=== PATIENT | male | born 1970 | race African-American/Black ===

== ENCOUNTER 2018-10-15 19:00 | Inpatient (IN) ==
[2018-10-15] MEDS ORDERED: Dextrose 50% in Water 50 ML Vial IV.PUSH PRN (22:07)
[2018-10-15] MEDS ORDERED: Acetaminophen 325 MG Tablet PO PRN (22:08)
[2018-10-15] MEDS ORDERED: Zolpidem Tartrate 5 MG Tablet PO PRN (22:08)
[2018-10-15] MEDS ORDERED: Bisacodyl 10 MG Supp RECTAL PRN (22:08)
--- NOTE | 2018-10-15 23:37 | P.HPIM ---
History of Present Illness [facility] Primary Care Physician: Rohini Tenorio Chief Complaint: Nausea and vomiting History of Present Illness: Mr. Dubon is a very pleasant 48 year-old male with a history of Type 1 Diabetes Mellitus and hypertension who presented to the emergency room in [place] complaining of less than 24 hours of nausea with vomiting. He was found to have a BUN of 80, Creatinine of 11.5, and eGFR of 6 with a potassium only mildly elevated at 5.2. The ER physician discussed the case with on-call oncology and the patient was transferred to the [facility] under the hospitalist service for further evaluation and management. The patient is seen shortly after arrival in his room. He reports that nausea and vomiting started at about 1:30 p.m. and caused him to leave work today. He denies associated diarrhea or abdominal pain. He did experience stuttering speech about 4 p.m. today and has continued through to the time of my visit. He denies ever having this symptom before. He denies headache, unilateral weakness, or paresthesias. He denies any recent fevers, chills, chest pain, or shortness of breath. He does report severe fatigue and muscle aches over the past few days. He denies any history of kidney disease. He has received several doses of anti-emetics, but none have worked. He has not taken any Pepto Bismol for GI symptoms but reports black emesis earlier today. Emesis is noted to be brown at the time of my visit. Other than stuttering speech, his neurological exam is completely normal. Family history unknown due to adoption. Inpatient Certification: I certify that the inpatient services were ordered in accordance with Medicare regulations governing the order. This includes certification that hospital inpatient services are reasonable and necessary and in the case of services not specified as inpatient-only under 42 CFR 419.22(n), that they are appropriately provided as inpatient services in accordance to with the 2-midnight benchmark under 43 CFR 412.3(e) Estimated Total Length of Stay (Days): 4 Plans for Post Hospital Care: Home Review of Systems All other systems reviewed negative except as stated in [facility] - History History Provided By: Patient - Medical History Medical History: Medical History (Last Updated 10/16/18 @ 00:20 by VALERIO Archer) History of MRSA infection Hypertension Type 1 diabetes mellitus Onset Date: ~1991 - Surgical History Surgical History: Surgical History (Last Updated 10/16/18 @ 00:19 by VALERIO Archer) History of arthroplasty of left ankle Onset Date: ~1987 Hx of tonsillectomy Onset Date: ~1976 - Family History Family History: Family History (Last Updated 10/16/18 @ 00:19 by VALERIO Archer) Other Family history not known due to adoption - Social History I have reviewed the patient's Social History: Yes - Tobacco History Second Hand Smoke Exposure: No Smoking Status: Never smoker - Alcohol History How Often Do You Have a Drink Containing Alcohol: Never - Substance Use History Substance History: No History of Abuse Medications and Allergies Active Medications: Active Medications Acetaminophen (Tylenol) 650 mg PO Q4H PRN PRN Reason: Temp > 100.4 Bisacodyl (Dulcolax Supp) 10 mg RECTAL DAILY PRN PRN Reason: SEVERE CONSITIPATION Dextrose (D50w Vial) 50 ml IV.PUSH UNSCH PRN PRN Reason: PER HYPOGLYCEMIA PROTOCOL Glucagon (Glucagon Inj) 1 mg OTHER PRN PRN PRN Reason: for Hypoglycemia Protocol Sodium Chloride (Ns Inj) 1,000 mls @ 60 mls/hr IV.CONT .[id number] GIUSEPPE Insulin Aspart (Novolog Insulin Correctional Sugar Inj) 0 unit SQ ACHS AND 3AM GIUSEPPE; Protocol Ondansetron HCl (Zofran Inj) 4 mg IV.PUSH Q6H PRN PRN Reason: NAUSEA OR VOMITING Sennosides (Senokot) 17.2 mg PO Q12H PRN PRN Reason: Moderate Constipation Sodium Chloride (Ns Flush) 2 ml IV.FLUSH BID GIUSEPPE Sodium Chloride (Ns Flush) 2 ml IV.FLUSH PRN PRN PRN Reason: FLUSH AFTER USING IV ACCESS Zolpidem Tartrate (Ambien) 5 mg PO HS PRN PRN Reason: INSOMNIA Allergies Allergy/AdvReac Type Severity Reaction Status Date / Time No Known Allergies Allergy Verified 10/15/18 19:04 Home Medications Medication Instructions Recorded Confirmed Type insulin aspart U-100 [Novolog 1 sliding scale dose SUBCUT UD 10/15/18 10/15/18 History U-100 Insulin aspart] insulin glargine [Lantus Solostar 25 unit SUBCUT DAILY 10/15/18 10/15/18 History U-100 Insulin] Exam Narrative: GENERAL: This is a pleasant well-nourished, well-developed patient, in no apparent distress. SKIN: No rashes, ecchymoses or lesions. Cool and dry. HEAD: Atraumatic. Normocephalic. EYES: No scleral icterus. No injection or drainage. ENT: Nose without bleeding, purulent drainage. NECK: Trachea midline. No JVD or lymphadenopathy. CARDIOVASCULAR: Regular rate and rhythm without murmurs, gallops, or rubs. RESPIRATORY: Clear to auscultation. Breath sounds equal bilaterally. No wheezes , rales, or rhonchi. GASTROINTESTINAL: Abdomen soft, non-tender, nondistended. No guarding. MUSCULOSKELETAL: Extremities without clubbing, cyanosis, or edema. No calf tenderness. NEUROLOGICAL: Awake and alert. Motor and sensory grossly within normal limits. Stuttering speech. CN II-XII grossly intact. No pronator drift noted. . Results - Labs CBC & Chem 7: 10/16/18 00:59 Caprini VTE Risk Assessment Caprini VTE Risk Assessment: No/Low Risk (score <= 1) Caprini Risk Assessment Model: Point Value = 1 Point Value = 2 Point Value = 3 Point Value = 5 Age 41-60 Minor surgery BMI > 25 kg/m2 Swollen legs Varicose veins or History of unexplained or recurrent spontaneous Oral contraceptives or hormone replacement Sepsis (< 1 month) Serious lung disease, including pneumonia (< 1 month) Abnormal pulmonary function Acute myocardial infarction Congestive heart failure (< 1 month) History of inflammatory bowel disease Medical patient at bed rest Age 61-74 Arthroscopic surgery Major open surgery (> 45 min) Laparoscopic surgery (> 45 min) Malignancy Confined to bed (> 72 hours) Immobilizing plaster cast Central venous access Age >= 75 History of VTE Family history of VTE Factor V Leiden Prothrombin [id number] Lupus anticoagulant Anticardiolipin antibodies Elevated serum homocysteine Heparin-induced thrombocytopenia Other congenital or acquired thrombophilia Stroke (< 1 month) Elective arthroplasty Hip, pelvis, or leg fracture Acute spinal cord injury (< 1 month) Prophylaxis Regimen: Total Risk Factor Score Risk Level Prophylaxis Regimen 0-1 Low Early ambulation 2 Moderate Order ONE of the following: *Sequential Compression Device (SCD) *Heparin 5000 units SQ BID 3-4 Higher Order ONE of the following medications: *Heparin 5000 units SQ TID *Enoxaparin/Lovenox 40 mg SQ daily (WT < 150 kg, CrCl > 30 mL/min) *Enoxaparin/Lovenox 30 mg SQ daily (WT < 150 kg, CrCl > 10-29 mL/min) *Enoxaparin/Lovenox 30 mg SQ BID (WT < 150 kg, CrCl > 30 mL/min) AND/OR *Sequential Compression Device (SCD) 5 or more Highest Order ONE of the following medications: *Heparin 5000 units SQ TID (Preferred with Epidurals) *Enoxaparin/Lovenox 40 mg SQ daily (WT < 150 kg, CrCl > 30 mL/min) *Enoxaparin/Lovenox 30 mg SQ daily (WT < 150 kg, CrCl > 10-29 mL/min) *Enoxaparin/Lovenox 30 mg SQ BID (WT < 150 kg, CrCl > 30 mL/min) AND *Sequential Compression Device (SCD) Assessment and Plan - Plan Mr. Dubon is a very pleasant 48 year-old male with a history of Type 1 Diabetes Mellitus and hypertension who presented to the emergency room in [place] complaining of less than 24 hours of nausea with vomiting. He was found to have a BUN of 80, Creatinine of 11.5, and eGFR of 6 with a potassium only mildly elevated at 5.2. The ER physician discussed the case with on-call oncology and the patient was transferred to the main hospital under the hospitalist service for further evaluation and management. Acute Renal Failure - patient denies history of kidney disease -BUN 80, Creatinine of 11.5, and eGFR of 6 with a potassium 5.2 -consult to nephrology - appreciate assistance -NPO -IVF hydration with NS at 60 cc/hr -obtain renal u/s to evaluate the structure and look for possible obstruction or other abnormality of bladder/ureters/kidneys -avoid nephrotoxins -repeat labs in a.m. and follow results Stuttering speech - suspect secondary to ARF- acutely started at 4 p.m. -check ct head without contrast to r/o intracranial bleeding - if normal check brain MRI -consider neurology consultation Nausea/Vomiting -abdomen/pelvis CT in [place] negative -Zofran 4 mg IV q6h and Prochlorperazine 5 mg IV q6h -concern for GI bleed with "black" discolored emesis earlier today - check emesis for occult blood, if +, consult GI -Protonix 40 mg IV x 1 dose, if emesis occult blood +, start Protonix drip Anemia - concern for possible gi bleed vs underlying chronic kidney disease -Hgb 10.6/HCT 32.3 -repeat labs and follow trends Hypertension -Takes clonidine at home -Clonidine 0.1 mg q6h PRN SBP > 180, DBP > 100 if HR > 60 - monitor bp and adjust tx as indicated Type 1 DM -accuchecks ACHS and 03 with low dose sliding scale coverage -holding home basal insulin for now while NPO - reconciliation also needs to be completed -PRN hypoglycemia protocol -monitor trends in blood sugar readings and adjust treatment as indicated -restart basal insulin when diet restarted DVT prophylaxis -early ambulation Discussed Condition With: Dr. Morse, patient, and RN
[2018-10-16] MEDS: Sod Chloride 0.9% Inj 1,000 ML IV.CONT SCH (00:03)
[2018-10-16] MEDS ORDERED: Pantoprazole Inj 40 MG Vial IV.PUSH ONE (00:44)
--- NOTE | 2018-10-16 01:47 | CT ---
EXAM DATE: 10/16/2018 1:39 AM EST AGE/SEX: 48 years / Male INDICATIONS: Altered mental status. Stuttered speech. CLINICAL DATA: This is the patient's initial encounter. Patient reports that signs and symptoms have been present for 1 day and indicates a pain score of 0/10. MEDICAL/SURGICAL HISTORY: Hypertension. Diabetes mellitus type I. Tonsillectomy. RADIATION DOSE: 56.35 CTDI (mGy) COMPARISON: No prior exams available for comparison. TECHNIQUE: CT of the head without contrast. Using automated exposure control and adjustment of the mA and/or kV according to patient size, radiation dose was kept as low as reasonably achievable to ob tain optimal diagnostic quality images. DICOM format image data is available electronically for revi ew and comparison. FINDINGS: Cerebrum: There is generalized cerebral atrophy. Ventricles are normal given the degree of atrophy. There is moderate periventricular white matter low attenuation. Low-attenuation in the right fronta l high convexity is characteristic of encephalomalacia. There is cavum septum lucidum. No midline sh ift, mass lesion, hemorrhage or acute infarction. No extraaxial fluid collections are seen. Posterior Fossa: The cerebellum and brainstem demonstrate no acute abnormality. The 4th ventricle is midline. The cerebellopontine angle is within normal limits. Extracranial: The visualized sinuses are clear. Skull: The calvaria is intact. No skull fracture. CONCLUSION: 1. No acute intracranial abnormality is identified. 2. There is generalized cerebral atrophy and moderate to severe periventricular white matter low-att enuation likely representing chronic small vessel ischemic change. There additionally is encephalomal acia in the right frontal high convexity. These findings are much more severe than typically seen in a patient of this age. . Electronically signed by: Ric Watkins MD 10/16/2018 1:46 AM EST
[2018-10-16 01:56] LABS: Calcium 7.7 mg/dL (8.5-10.1); Carbon Dioxide 20.3 meq/L (21.0-32.0); Potassium 4.7 meq/L (3.5-5.1)
[2018-10-16 02:05] LABS: Thyroid Stimulating Hormone 1.18 uIU/mL (0.358-3.740)
[2018-10-16] MEDS ORDERED: Dextrose 50% in Water 50 ML Vial IV.PUSH PRN (02:15)
[2018-10-16 02:18] LABS: CKMB Percent 1.3 % (0.0-4.0); Creatine Kinase MB 6.4 ng/mL (0.5-3.6)
[2018-10-16] MEDS: Insulin NovoLOG Aspart Correctional Sugar Inj SQ SCH ×4 (03:42→21:02)
[2018-10-16 07:25] LABS: Hematocrit 27.1 % (39.0-51.0); Hemoglobin 9.2 gm/dL (13.0-17.0); Lymph # (Auto) 0.6 th/mm3 (1.0-4.8); Lymph % (Auto) 5.3 % (9.0-44.0); Mean Corpuscular HGB Conc 33.8 % (32.0-36.0); Mean Corpuscular Hemoglobin 27.1 pg (27.0-34.0); Mean Corpuscular Volume 80.2 fL (80.0-100.0); Mean Platelet Volume 7.6 fL (7.0-11.0); Mono # (Auto) 0.4 th/mm3 (0.0-0.9); Mono % (Auto) 3.9 % (0.0-8.0); Neut # (Auto) 9.9 th/mm3 (1.8-7.7); Neut % (Auto) 90.8 % (16.0-70.0); Platelet Count 325 th/mm3 (150-450); Red Blood Count 3.38 mil/mm3 (4.50-5.90); White Blood Count 10.8 th/mm3 (4.0-11.0)
[2018-10-16] MEDS ORDERED: Sod Chloride 0.9% Inj 1,000 ML OTHER PRN ×2 (09:14)
[2018-10-16] MEDS ORDERED: Acetaminophen 325 MG Tablet PO PRN (09:14)
[2018-10-16] MEDS ORDERED: Albumin Human 25% Inj 100 ML IV.SIG PRN (09:14)
[2018-10-16] MEDS ORDERED: Gelatin 12 MM/7 MM Topical Foam TOPICAL PRN (09:14)
[2018-10-16] MEDS ORDERED: Sod Chloride 0.9% Inj 1,000 ML IV.CONT PRN (09:14)
[2018-10-16] MEDS ORDERED: Heparin 10,000 UNITS/10 ML Vial (for IV use) OTHER PRN (09:14)
--- NOTE | 2018-10-16 09:48 | P.CONNP ---
<Ricky Esteves - Last Filed: 10/16/18 11:52> History of Present Illness Reason for Consult: Acute Renal Failure Primary Care Provider: Rohini Tenorio Chief Complaint: Nausea and vomiting History of Present Illness: Patient is a 48 year old male who is a transfer from [place]. He came to the hospital with complaints of nausea and vomiting for one day. Patient has prior medical history of Hypertension and Type I Diabetes. Patient has no history of kidney disease and family history is unknown due to adoption. Patient denies tobacco, alcohol, and illicit drug use. Patient's renal function has not improved since being transferred from [place]. Creatinine is 11.27, BUN 85. Potassium is 4.7. Patient's baseline renal function is not known. JACQUELINE could be due to dehydration from vomiting. Patient could have underlying CKD due to diabetic nephropathy, patient has had diabetes since 1991. Patient denied any use of nephrotoxic agents. Renal ultrasound is pending. UA is pending. Consult to IR was placed for PermCath and dialysis orders were put in. Patient to be dialyzed today. Patient denied chest pain, SOB, diarrhea. Patient has been NPO due to nausea and vomiting. Per the nurse, patient on contact precautions due to history of MRSA. Review of Systems All other systems reviewed negative except as stated in HPI PMFSH - History History Provided By: Patient - Medical History Medical History: Medical History (Last Reviewed 10/16/18 @ 09:39 by Geneva Short) History of MRSA infection Hypertension Type 1 diabetes mellitus Onset Date: ~1991 - Surgical History Surgical History: Surgical History (Last Reviewed 10/16/18 @ 09:39 by Geneva Short) History of arthroplasty of left ankle Onset Date: ~1987 Hx of tonsillectomy Onset Date: ~1976 - Family History Family History: Family History (Last Updated 10/16/18 @ 00:19 by VALERIO Archer) Other Family history not known due to adoption - Tobacco History Second Hand Smoke Exposure: No Tobacco Use In Past 30 Days: No Smoking Status: Never smoker Tobacco Type: Cigarettes - Alcohol History How Often Do You Have a Drink Containing Alcohol: Never - Substance Use History Substance History: No History of Abuse - Immunization History Tetanus Immunization: <5 Years Hx Influenza Vaccine This Season: No Medications and Allergies Allergies Allergy/AdvReac Type Severity Reaction Status Date / Time No Known Allergies Allergy Verified 10/15/18 19:04 Home Medications Medication Instructions Recorded Confirmed Type insulin aspart U-100 [Novolog 1 sliding scale dose SUBCUT UD 10/15/18 10/15/18 History U-100 Insulin aspart] insulin glargine [Lantus Solostar 25 unit SUBCUT DAILY 10/15/18 10/15/18 History U-100 Insulin] Active Medications: Active Medications Acetaminophen (Tylenol) 650 mg PO Q4H PRN PRN Reason: Temp > 100.4/headache Acetaminophen (Tylenol) 650 mg PO UNSCH PRN PRN Reason: SEE LABEL COMMENTS Bisacodyl (Dulcolax Supp) 10 mg RECTAL DAILY PRN PRN Reason: SEVERE CONSITIPATION Clonidine HCl (Catapres) 0.1 mg PO Q6H PRN PRN Reason: sbp>180 or dbp>100 if HR > 60 Last Admin: 10/16/18 00:39 Dose: 0.1 mg Clonidine HCl (Catapres) 0.1 mg PO UNSCH PRN PRN Reason: SEE LABEL COMMENTS Dextrose (D50w Vial) 50 ml IV.PUSH UNSCH PRN PRN Reason: per Hypoglycemic Protocol Diphenhydramine HCl (Benadryl) 25 mg PO UNSCH PRN PRN Reason: SEE LABEL COMMENTS Epoetin Hector (Epogen Inj) 10,000 unit IV.PUSH UNSCH PRN PRN Reason: SEE LABEL COMMENTS Gelatin (Gelfoam 12 Mm/7 Mm Topical) 1 foam TOPICAL PRN PRN PRN Reason: help stop bleeding from site Gentamicin Sulfate (Gentamicin Inj) 20 mg OTHER WITH DIALYSIS PRN PRN Reason: Dwell Gentamycin Lock Glucagon (Glucagon Inj) 1 mg OTHER UNSCH PRN PRN Reason: per Hypoglycemic Protocol Heparin Sodium (Porcine) (Heparin Inj) 8,000 units OTHER WITH DIALYSIS PRN PRN Reason: for machine prime Heparin Sodium (Porcine) (Heparin Inj) 1,000 units OTHER WITH DIALYSIS PRN PRN Reason: Dwell Heparin to Fill Catheter Sodium Chloride (Ns Inj) 1,000 mls @ 60 mls/hr IV.CONT .[id number] [facility] Last Admin: 10/16/18 00:03 Dose: 60 mls/hr Sodium Chloride (Ns Inj) 1,000 mls @ 0 mls/hr OTHER .Q0M PRN PRN Reason: for prime and rinse back Sodium Chloride (Ns Inj) 1,000 mls @ 200 mls/hr OTHER .Q5H PRN PRN Reason: for dialyzer flush PRN Sodium Chloride (Ns Inj) 1,000 mls @ 0 mls/hr IV.CONT .Q0M PRN PRN Reason: hypotension / volume replace Albumin Human (Flexbumin 25% Inj) 100 mls @ 60 mls/hr IV.SIG WITH DIALYSIS PRN PRN Reason: hypotension / volume replace Insulin Aspart (Novolog Insulin Correctional Sugar Inj) 0 unit SQ ACHS AND 3AM GIUSEPPE; Protocol Last Admin: 10/16/18 03:42 Dose: Not Given Mannitol (Mannitol Inj) 12.5 gm IV.PUSH UNSCH PRN PRN Reason: hypotension / volume replace Nitroglycerin (Nitrostat Sl) 0.4 mg SL Q5M PRN PRN Reason: CHEST PAIN Ondansetron HCl (Zofran Inj) 4 mg IV.PUSH Q6H PRN PRN Reason: NAUSEA OR VOMITING Ondansetron HCl (Zofran Inj) 4 mg IV.PUSH UNSCH PRN PRN Reason: NAUSEA OR VOMITING Prochlorperazine Edisylate (Compazine Inj) 5 mg IV.PUSH Q4H PRN PRN Reason: n/v if zofran ineffective Last Admin: 10/16/18 00:39 Dose: 5 mg Sennosides (Senokot) 17.2 mg PO Q12H PRN PRN Reason: Moderate Constipation Sodium Chloride (Ns Flush) 2 ml IV.FLUSH BID GIUSEPPE Sodium Chloride (Ns Flush) 2 ml IV.FLUSH PRN PRN PRN Reason: FLUSH AFTER USING IV ACCESS Sodium Chloride (Ns Flush) 5 ml IV.FLUSH PRN PRN PRN Reason: flush each lumen during HD Exam Vital signs: Vital Signs 10/16/18 00:00 10/16/18 04:00 10/16/18 08:00 Temperature 98.2 F 98.4 F 97.4 F L Pulse Rate 100 H 109 H 87 Respiratory Rate 18 18 19 Blood Pressure 220/118 H 180/106 H 189/110 H Pulse Oximetry 99 100 98 Intake & Output 10/15/18 10/16/18 10/16/18 18:59 06:59 18:59 Intake Total 100 / 100 Output Total 0 / 0 Balance 100 / 100 Weight 102.965 kg Intake: Oral 100 / 100 Output: Urine 0 / 0 Other: Date of Last Bowel Movement 10/15/18 Weight On Admission 102.965 kg - Constitutional no acute distress - Routine HEENT Exam Head: Present: normocephalic Eye: Present: EOMI, PERRL ENT: Present: mucous membranes moist - Routine Neck Exam Present: trachea midline. Absent: JVD, tracheal deviation - Routine Respiratory Exam Present: CTA bilaterally. Absent: accessory muscle use, respiratory distress - Routine Cardiovascular Exam Present: RRR - Routine Abdominal Exam Present: soft, normoactive bowel sounds. Absent: tenderness - Routine Extremities Exam Present: pulses intact, normal capillary refill. Absent: edema - Routine Neurological Exam Present: alert, oriented X3 Results - Lab Results 10/16/18 06:07 10/16/18 00:59 Most recent lab results Calcium 7.7 mg/dL (8.5-10.1) L 10/16/18 00:59 Assessment and Plan - Plan JACQUELINE Patient's renal function has not improved since being transferred from [place]. Creatinine is 11.27, BUN 85. Potassium is 4.7. Patient's baseline renal function is not known. JACQUELINE could be due to dehydration from vomiting. Patient could have underlying CKD due to diabetic nephropathy, patient has had diabetes since 1991. Renal ultrasound is pending. UA is pending. Consult to IR was placed for PermCath and dialysis orders were put in. Patient to be dialyzed today. Avoid Nephrotoxic agents. Monitor fluid and electrolytes. Hypertension Monitor BP. Patient on Clonidine for hypertension. Type I Diabetes Continue insulin coverage to maintain glucose levels between 140 and 180. <Raul Petit - Last Filed: 10/16/18 21:37> History of Present Illness Primary Care Provider: Rohini Tenorio [facility] - Medical History Medical History: Medical History (Last Reviewed 10/16/18 @ 09:39 by Geneva Short) History of MRSA infection Hypertension Type 1 diabetes mellitus Onset Date: ~1991 - Surgical History Surgical History: Surgical History (Last Reviewed 10/16/18 @ 09:39 by Geneva Short) History of arthroplasty of left ankle Onset Date: ~1987 Hx of tonsillectomy Onset Date: ~1976 - Family History Family History: Family History (Last Updated 10/16/18 @ 00:19 by VALERIO Archer) Other Family history not known due to adoption Medications and Allergies Active Medications: Active Medications Acetaminophen (Tylenol) 650 mg PO Q4H PRN PRN Reason: Temp > 100.4/headache Acetaminophen (Tylenol) 650 mg PO UNSCH PRN PRN Reason: SEE LABEL COMMENTS Amlodipine Besylate (Norvasc) 5 mg PO DAILY GIUSEPPE Bisacodyl (Dulcolax Supp) 10 mg RECTAL DAILY PRN PRN Reason: SEVERE CONSITIPATION Clonidine HCl (Catapres) 0.1 mg PO Q6H PRN PRN Reason: sbp>180 or dbp>100 if HR > 60 Last Admin: 10/16/18 00:39 Dose: 0.1 mg Dextrose (D50w Vial) 50 ml IV.PUSH UNSCH PRN PRN Reason: per Hypoglycemic Protocol Diphenhydramine HCl (Benadryl) 25 mg PO UNSCH PRN PRN Reason: SEE LABEL COMMENTS Epoetin Hector (Epogen Inj) 10,000 unit IV.PUSH UNSCH PRN PRN Reason: SEE LABEL COMMENTS Last Admin: 10/16/18 16:40 Dose: 10,000 unit Gelatin (Gelfoam 12 Mm/7 Mm Topical) 1 foam TOPICAL PRN PRN PRN Reason: help stop bleeding from site Gentamicin Sulfate (Gentamicin Inj) 20 mg OTHER WITH DIALYSIS PRN PRN Reason: Dwell Gentamycin Lock Last Admin: 10/16/18 16:40 Dose: 20 mg Glucagon (Glucagon Inj) 1 mg OTHER UNSCH PRN PRN Reason: per Hypoglycemic Protocol Heparin Sodium (Porcine) (Heparin Inj) 8,000 units OTHER WITH DIALYSIS PRN PRN Reason: for machine prime Heparin Sodium (Porcine) (Heparin Inj) 1,000 units OTHER WITH DIALYSIS PRN PRN Reason: Dwell Heparin to Fill Catheter Last Admin: 10/16/18 16:40 Dose: 1,000 units Heparin Sodium (Porcine) (Heparin Inj) 5,000 units SQ Q12HR [facility] Last Admin: 10/16/18 21:01 Dose: 5,000 units Sodium Chloride (Ns Inj) 1,000 mls @ 60 mls/hr IV.CONT .[id number] [facility] Last Infusion: 10/16/18 21:00 Dose: 45 mls/hr Sodium Chloride (Ns Inj) 1,000 mls @ 0 mls/hr OTHER .Q0M PRN PRN Reason: for prime and rinse back Sodium Chloride (Ns Inj) 1,000 mls @ 200 mls/hr OTHER .Q5H PRN PRN Reason: for dialyzer flush PRN Sodium Chloride (Ns Inj) 1,000 mls @ 0 mls/hr IV.CONT .Q0M PRN PRN Reason: hypotension / volume replace Albumin Human (Flexbumin 25% Inj) 100 mls @ 60 mls/hr IV.SIG WITH DIALYSIS PRN PRN Reason: hypotension / volume replace Vancomycin HCl 1,000 mg/ (Sodium Chloride) 250 mls @ 250 mls/hr IV.SIG [employer] [facility] Stop: 10/20/18 11:59 Last Infusion: 10/16/18 16:02 Dose: Infused Cefazolin Sodium/Dextrose (Ancef 2 Gm Premix Inj) 2 gm in 50 mls @ 100 mls/hr IV.SIG [employer] [facility] Stop: 10/20/18 11:59 Last Infusion: 10/16/18 16:01 Dose: Infused Insulin Aspart (Novolog Insulin Correctional Sugar Inj) 0 unit SQ ACHS AND 3AM GIUSEPPE; Protocol Last Admin: 10/16/18 21:02 Dose: Not Given Insulin Detemir (Levemir Inj) 5 unit SQ HS [facility] Last Admin: 10/16/18 21:02 Dose: 5 unit Mannitol (Mannitol Inj) 12.5 gm IV.PUSH UNSCH PRN PRN Reason: hypotension / volume replace Nitroglycerin (Nitrostat Sl) 0.4 mg SL Q5M PRN PRN Reason: CHEST PAIN Ondansetron HCl (Zofran Inj) 4 mg IV.PUSH Q6H PRN PRN Reason: NAUSEA OR VOMITING Ondansetron HCl (Zofran Inj) 4 mg IV.PUSH UNSCH PRN PRN Reason: NAUSEA OR VOMITING Prochlorperazine Edisylate (Compazine Inj) 5 mg IV.PUSH Q4H PRN PRN Reason: n/v if zofran ineffective Last Admin: 10/16/18 00:39 Dose: 5 mg Sennosides (Senokot) 17.2 mg PO Q12H PRN PRN Reason: Moderate Constipation Sodium Chloride (Ns Flush) 2 ml IV.FLUSH BID [facility] Last Admin: 10/16/18 21:02 Dose: Not Given Sodium Chloride (Ns Flush) 2 ml IV.FLUSH PRN PRN PRN Reason: FLUSH AFTER USING IV ACCESS Sodium Chloride (Ns Flush) 5 ml IV.FLUSH PRN PRN PRN Reason: flush each lumen during HD Exam Vital signs: Vital Signs 10/16/18 00:00 10/16/18 04:00 10/16/18 08:00 Temperature 98.2 F 98.4 F 97.4 F L Pulse Rate 100 H 109 H 84 Respiratory Rate 18 18 19 Blood Pressure 220/118 H 180/106 H 189/110 H Pulse Oximetry 99 100 98 10/16/18 12:00 10/16/18 17:24 10/16/18 18:55 Temperature 96.8 F L Pulse Rate 78 Respiratory Rate 19 Blood Pressure Pulse Oximetry 98 98 100 Intake & Output 10/16/18 10/16/18 10/17/18 06:59 18:59 06:59 Intake Total 100 / 100 300 / 300 100 / 100 Output Total 0 / 0 2500 / 2500 Balance 100 / 100 300 / 300 -2400 / -2400 Weight 102.965 kg Intake: IV 300 / 300 100 / 100 NS Inj 1,000 ML @ 60 mls/hr IV. 100 / 100 CONT .[id number] [facility] Rx#:[id number] Vancomycin Inj 1,000 MG In NS 250 / 250 Inj 250 ML @ 250 mls/hr IV.SIG [employer] [facility] Rx#:[id number] Ancef 2 GM Premix Inj 2 gm In 50 / 50 50 ml @ 100 mls/hr IV.SIG [employer] [facility] Rx#:[id number] Oral 100 / 100 Output: Urine 0 / 0 Hemodialysis Amount 2500 / 2500 Other: Date of Last Bowel Movement 10/15/18 10/15/18 Weight On Admission 102.965 kg Results - Lab Results 10/16/18 11:29 10/16/18 00:59 Most recent lab results Calcium 7.7 mg/dL (8.5-10.1) L 10/16/18 00:59 Phosphorus 8.1 mg/dL (2.5-4.9) H 10/16/18 11:29 Assessment and Plan - Attending Attestation patient was seen and examined. Patient likely has reached ESRD. It could be due to diabetic nephropathy. He also appears to have uncontrolled hypertension, he had run out of his antihypertensives. Order serologies. Needs placement. Will consider vascular surgery consult for AVF.
--- NOTE | 2018-10-16 10:02 | US ---
EXAM DATE: 10/16/2018 9:49 AM EST AGE/SEX: 48 years / Male INDICATIONS: Lightheadedness. CLINICAL DATA: This is the patient's initial encounter. Patient reports that signs and symptoms have been present for 1 day and indicates a pain score of 0/10. MEDICAL/SURGICAL HISTORY: Diabetes mellitus type I. Hypertension. MRSA. Tonsillectomy. Arthro plasty of left ankle. COMPARISON: No prior exams available for comparison. VELOCITY PARAMETERS: ICA/CCA Ratio: Right 1.4 , Left 0.8 ICA: Right 92 cm/sec, Left 73 cm/sec CCA: Right 6 cm/sec, Left 88 cm/sec ECA: Right 122 cm/sec, Left 105 cm/sec Vertebral: Right 47 cm/sec antegrade, Left 46 cm/sec antegrade FINDINGS: Right Carotid: No significant plaque is visualized.The waveforms are within normal limits. Left Carotid: No significant plaque is visualized. The waveforms are within normal limits. Other: None. CONCLUSION: 1. Right Internal Carotid Artery: No significant stenosis or atherosclerotic plaque is visualized. 2. Left Internal Carotid Artery: No significant stenosis or atherosclerotic plaque is visualized. Electronically signed by: Ciro Tolbert MD 10/16/2018 10:01 AM EST
--- NOTE | 2018-10-16 10:08 | US ---
EXAM DATE: 10/16/2018 9:53 AM EST AGE/SEX: 48 years / Male INDICATIONS: Increased BUN and Creatinine. CLINICAL DATA: This is the patient's initial encounter. Patient reports that signs and symptoms have been present for 1 day and indicates a pain score of 0/10. MEDICAL/SURGICAL HISTORY: Diabetes mellitus type I. Hypertension. MRSA. Tonsillectomy. Arthro plasty of left ankle. COMPARISON: No prior exams available for comparison. MEASUREMENTS: Right Kidney:__9.0 x 5.0 x 5.4 cm Left Kidney:__9.3 x 5.1 x 4.5 cm FINDINGS: Right Kidney: Increased echotexture. No mass or hydronephrosis. Left Kidney: Increased echotexture. No mass or hydronephrosis. Bladder: Within normal limits given the degree of distension. Other: None. CONCLUSION: 1. Echogenic kidneys consistent with medical renal disease. 2. No sonographic evidence for obstructive uropathy. Electronically signed by: Ciro Tolbert MD 10/16/2018 10:07 AM EST
[2018-10-16] MEDS ORDERED: ceFAZolin 2 GM Premix Inj 2 GM/50 ML PIGGYBACK IV.SIG SCH (12:00)
[2018-10-16] MEDS ORDERED: Vancomycin Inj 1,000 MG in Sodium Chlor 0.9% Inj 250 ML IV.SIG SCH (12:00)
[2018-10-16 12:10] LABS: Baso % (Auto) 0.2 % (0.0-2.0); Hematocrit 30.4 % (39.0-51.0); Hemoglobin 9.9 gm/dL (13.0-17.0); Lymph % (Auto) 9.8 % (9.0-44.0); Mean Corpuscular HGB Conc 32.5 % (32.0-36.0); Mean Corpuscular Hemoglobin 26.7 pg (27.0-34.0); Mean Corpuscular Volume 82.1 fL (80.0-100.0); Mean Platelet Volume 7.3 fL (7.0-11.0); Mono # (Auto) 0.6 th/mm3 (0.0-0.9); Mono % (Auto) 5.9 % (0.0-8.0); Neut # (Auto) 8.9 th/mm3 (1.8-7.7); Neut % (Auto) 84.1 % (16.0-70.0); Platelet Count 350 th/mm3 (150-450); Red Cell Distribution Width 15.3 % (11.6-17.2); White Blood Count 10.6 th/mm3 (4.0-11.0)
[2018-10-16 12:28] LABS: INR 1.1 Ratio; Prothrombin Time 10.9 sec (9.8-11.6)
--- NOTE | 2018-10-16 13:08 | MR ---
EXAM DATE: 10/16/2018 1:05 PM EST AGE/SEX: 48 years / Male INDICATIONS: . Change in speech pattern. CLINICAL DATA: This is the patient's subsequent encounter. Patient reports that signs and symptoms h ave been present for 2 days and indicates a pain score of 3/10. MEDICAL/SURGICAL HISTORY: Renal failure, acute. Hypertension. Diabetes mellitus type II. Tons illectomy. left ankle surgery COMPARISON: [facility] [place], MR HEAD W/O CONTRAST, 10/16/2018. . TECHNIQUE: 3D [id number] MRA was performed. Source images, multiplanar STS MIP, and 3D volum e MIP reconstructions were reviewed. FINDINGS: There is excellent visualization of the major intracranial arteries out to the second-order branch ve ssels. There is no evidence for aneurysm, vessel truncation or stenosis, and no evidence for vascula r malformation. CONCLUSION: Negative MRA [place] ([place]) non contrast. Electronically signed by: Ric Schwartz MD 10/16/2018 1:07 PM EST
--- NOTE | 2018-10-16 13:21 | MB ---
cc: Yazmin Barker MD DATE: 10/16/2018 REASON FOR CONSULTATION: Abnormal CT, abnormal speech. HISTORY OF PRESENT ILLNESS: This is a 48-year-old man with history of diabetes, hypertension, who came to the ER in [place] with nausea, vomiting, found to have a BUN of 80, creatinine of 11.5, GFR 6. He was transferred here for more evaluation and ongoing care. There was some stuttering speech, questionably stuttering or slurring. No weakness in the arms or legs. The patient seems to be back at baseline. Denies any headache, chest pain, shortness of breath or weakness. He is on his way down to imaging. PAST MEDICAL HISTORY: As stated, also of MRSA in the past. PAST SURGICAL HISTORY: Arthroplasty of left ankle, tonsillectomy. FAMILY HISTORY: Unknown due to being adopted. SOCIAL HISTORY: Does not smoke, does not drink. No history of abuse. HOME MEDICINES: None listed. PHYSICAL EXAMINATION: VITAL SIGNS: His temperature is 96.8, pulse 78, respiratory rate 19, blood pressure 189/110. NECK: Supple. I do not appreciate any bruits. HEART: Regular. NEUROLOGIC: He is awake. He is alert. He is oriented. He is fluent. He can repeat. He is not dysarthric nor aphasic. Pupils reactive. Face is symmetric. Tongue midline. Motor dial, I do not appreciate any weakness, drift or leg lag. Cerebellar is intact. DTRs are 1+. Gait is withheld as he is in a wheelchair going to a scan. LABORATORY DATA: Reviewed. His white count is 10.6, hemoglobin 9.9, platelets 350,000. Coag panel was normal. Chemistries: Creatinine 11.27, GFR 6, BUN 85, CO2 of 20.3, chloride 110, glucose currently 120, phosphorus 8.8, calcium 7.7. TSH was normal. REPORTS OF IMAGING: CT head, nothing acute but generalized atrophy, moderate severe periventricular white matter disease, encephalomalacia of right frontal high convexity. Carotid ultrasound, no stenosis. Abdomen and bladder ultrasound, medical renal disease. IMPRESSION: Abnormal CT. Speech may have been transient ischemic attack and may have had a stroke. Recommend having him undergo an MRI of the brain. If that is unremarkable, I would continue care per nephrology. Get him out of bed with physical therapy, ambulate. MRI as well as MRA will be done, as stated. Depending on findings from that perspective, further recommendations will be made. I know he is going to undergo dialysis and a catheter will be placed as well. Continue to monitor labs accordingly. We will check a hemoglobin A1c if not done so, and a consideration will be starting him on a baby aspirin if no other contraindication at some point in time. MD MEGA Hickman/roni , 12:40 PM , 12:50 PM
--- NOTE | 2018-10-16 13:48 | MR ---
EXAM DATE: 10/16/2018 1:30 PM EST AGE/SEX: 48 years / Male INDICATIONS: . Change in speech pattern. CLINICAL DATA: This is the patient's subsequent encounter. Patient reports that signs and symptoms h ave been present for 2 days and indicates a pain score of 3/10. MEDICAL/SURGICAL HISTORY: Renal failure, acute. Diabetes mellitus type II. Hypertension. Tons illectomy. ankle surgery COMPARISON: [facility] – [place], MRA HEAD W/O CONTRAST, 10/16/2018. [facility] [place], CT HEAD W/O CONTRAST, 10/16/2018. . TECHNIQUE: Multiplanar, multisequence examination of the brain was performed without contrast. FINDINGS: Cerebrum: The ventricles are normal for age. There is a patent cavum septum pellucid. This a normal finding. There is a linear area of low signal seen in the right frontal lobe which may be the sequel a/tract of a prior ventriculostomy tube. No evidence of midline shift, mass lesion, hemorrhage or acu te infarction. No extraaxial fluid collections are seen. The pituitary gland and suprasellar cister n are normal in configuration. There is some low signal seen in the right periventricular region guille cent to the right lateral ventricle on the gradient echo sequences which could be from prior hemorrha ge. An acute area of hemorrhage is not seen. White Matter: There is increased signal seen in the periventricular white matter. There is also some scattered areas of increased signal within the external capsule and in the white matter surrounding the basal ganglia. There is increased signal seen in the anterior aspect of the anup. Posterior Fossa: The cerebellum and brainstem are intact. The 4th ventricle is midline. The cerebel lopontine angle is unremarkable. The cerebellar tonsils are normal in position. Diffusion Imaging: No focal areas of restricted diffusion are seen. No evidence of acute infarction . Extracranial: The visualized portions of the orbits and paranasal sinuses are unremarkable. CONCLUSION: 1. No acute areas of hemorrhage or mass effect are seen. 2. Increased signal within the cerebral white matter likely related to small vessel ischemic change versus other demyelinating conditions. There is also some increased signal/demyelination in the anter ior aspect of the anup. 3. Suspected old area of hemorrhage in the right periventricular region. Electronically signed by: Ric Muhammad MD 10/16/2018 1:47 PM EST
--- NOTE | 2018-10-16 14:19 | P.PN ---
Subjective Interval history: Follow-up for acute kidney injury, hypertension, diabetes mellitus and slurred speech. Patient is currently doing well. He is about to go to MRI for MRI head and MRA. Patient denies any chest pain, shortness of breath, fever or chills. Physical Exam Vital signs: Vital Signs 10/16/18 00:00 10/16/18 04:00 10/16/18 08:00 Temperature 98.2 F 98.4 F 97.4 F L Pulse Rate 100 H 109 H 84 Respiratory Rate 18 18 19 Blood Pressure 220/118 H 180/106 H 189/110 H Pulse Oximetry 99 100 98 10/16/18 12:00 Temperature 96.8 F L Pulse Rate 78 Respiratory Rate 19 Blood Pressure Pulse Oximetry 98 Intake & Output 10/15/18 10/16/18 10/16/18 18:59 06:59 18:59 Intake Total 100 / 100 Output Total 0 / 0 Balance 100 / 100 Weight 102.965 kg Intake: Oral 100 / 100 Output: Urine 0 / 0 Other: Date of Last Bowel Movement 10/15/18 10/15/18 Weight On Admission 102.965 kg Narrative: GENERAL: Alert, oriented x3, NAD. SKIN: Warm and dry. HEAD: Normocephalic. EYES: No scleral icterus. No injection or drainage. NECK: Supple, trachea midline. No JVD or lymphadenopathy. CARDIOVASCULAR: Regular rate and rhythm without murmurs, gallops, or rubs. RESPIRATORY: Breath sounds equal bilaterally. No accessory muscle use. GASTROINTESTINAL: Abdomen soft, non-tender, nondistended. MUSCULOSKELETAL: No cyanosis, or edema. BACK: Nontender without obvious deformity. No CVA tenderness. Results - Labs CBC & Chem 7: 10/16/18 11:29 10/16/18 00:59 Laboratory Results - last 24 hr 10/16/18 10/16/18 10/16/18 00:59 03:40 06:07 WBC 10.8 RBC 3.38 L Hgb 9.2 L Hct 27.1 L MCV 80.2 MCH 27.1 MCHC 33.8 RDW 15.0 Plt Count 325 MPV 7.6 Neut % (Auto) 90.8 H Lymph % (Auto) 5.3 L [place] % (Auto) 3.9 Eos % (Auto) 0.0 Baso % (Auto) 0.0 Neut # (Auto) 9.9 H Lymph # (Auto) 0.6 L [place] # (Auto) 0.4 Eos # (Auto) 0.0 Baso # (Auto) 0.0 WBC Differential . Differential Comment Auto diff final PT INR Sodium 143 Potassium 4.7 Chloride 110 H Carbon Dioxide 20.3 L Anion Gap 13 BUN 85 H Creatinine 11.27 H* Estimated GFR 6 L POC Glucose 151 H Random Glucose 146 H Calcium 7.7 L Phosphorus Total Creatine Kinase 478 H CK-MB (CK-2) 6.4 H CK-MB (CK-2) % 1.3 TSH 1.180 10/16/18 10/16/18 10/16/18 07:43 11:29 11:29 WBC 10.6 RBC 3.70 L Hgb 9.9 L Hct 30.4 L MCV 82.1 MCH 26.7 L MCHC 32.5 RDW 15.3 Plt Count 350 MPV 7.3 Neut % (Auto) 84.1 H Lymph % (Auto) 9.8 [place] % (Auto) 5.9 Eos % (Auto) 0.0 Baso % (Auto) 0.2 Neut # (Auto) 8.9 H Lymph # (Auto) 1.0 [place] # (Auto) 0.6 Eos # (Auto) 0.0 Baso # (Auto) 0.0 WBC Differential . Differential Comment Auto diff final PT INR Sodium Potassium Chloride Carbon Dioxide Anion Gap BUN Creatinine Estimated GFR POC Glucose 130 H Random Glucose Calcium Phosphorus 8.1 H Total Creatine Kinase CK-MB (CK-2) CK-MB (CK-2) % TSH 10/16/18 10/16/18 11:29 12:05 WBC RBC Hgb Hct MCV MCH MCHC RDW Plt Count MPV Neut % (Auto) Lymph % (Auto) [place] % (Auto) Eos % (Auto) Baso % (Auto) Neut # (Auto) Lymph # (Auto) [place] # (Auto) Eos # (Auto) Baso # (Auto) WBC Differential Differential Comment PT 10.9 INR 1.1 Sodium Potassium Chloride Carbon Dioxide Anion Gap BUN Creatinine Estimated GFR POC Glucose 120 H Random Glucose Calcium Phosphorus Total Creatine Kinase CK-MB (CK-2) CK-MB (CK-2) % TSH - Imaging Impressions Abdomen/Bladder Ultrasound 10/16/18 00:00 CONCLUSION: 1. Echogenic kidneys consistent with medical renal disease. 2. No sonographic evidence for obstructive uropathy. Carotid Doppler Study 10/16/18 00:00 CONCLUSION: 1. Right Internal Carotid Artery: No significant stenosis or atherosclerotic plaque is visualized. 2. Left Internal Carotid Artery: No significant stenosis or atherosclerotic plaque is visualized. Head CT 10/16/18 00:00 CONCLUSION: 1. No acute intracranial abnormality is identified. 2. There is generalized cerebral atrophy and moderate to severe periventricular white matter low-attenuation likely representing chronic small vessel ischemic change. There additionally is encephalomalacia in the right frontal high convexity. These findings are much more severe than typically seen in a patient of this age. . Head MRI 10/16/18 00:00 CONCLUSION: 1. No acute areas of hemorrhage or mass effect are seen. 2. Increased signal within the cerebral white matter likely related to small vessel ischemic change versus other demyelinating conditions. There is also some increased signal/demyelination in the anterior aspect of the anup. 3. Suspected old area of hemorrhage in the right periventricular region. Head MRA 10/16/18 00:00 CONCLUSION: Negative MRA Cow ([place]) non contrast. Assessment and Plan - Plan Mr. Dubon is a very pleasant 48 year-old male with a history of Type 1 Diabetes Mellitus and hypertension who presented to the emergency room in [place] complaining of less than 24 hours of nausea with vomiting. He was found to have a BUN of 80, Creatinine of 11.5, and eGFR of 6 with a potassium only mildly elevated at 5.2. Patient was subsequently transferred to the main hospital for further evaluation. Acute renal failure No history of kidney disease. Creatinine 11.27, GFR 6, potassium 4.7, sodium 143. Appreciate nephrology input. Nephrology is planning to perform dialysis today. Slurred speech Imaging studies including MRI studies are negative for any acute findings. Diabetes mellitus Type 1 -Currently BG well controlled. Goal 140-180. Currently around 120-150. -Continue sliding scale insulin. Will continue Levemir 5 units QHS. Anemia - likely due to chronic inflammatory condition (DM, nephropathy) -Hgb stable at 9.9. Erythropoietin per nephrology. Hypertension -BP is elevated in the upper 180s systolic. -After dialysis, we can re-evaluate need for BP meds. Will consider ARB or CCB. Full code. Will start heparin SQ 5000 BID.
[2018-10-16] MEDS ORDERED: *Heparin 10,000 UNITS/10 ML Vial Periprocedural ONLY ONE (15:10)
[2018-10-16] MEDS ORDERED: Lidocaine 1%/Epinephrine 1:100,000 Inj 20 ML Vial ONE (15:10)
[2018-10-16] MEDS ORDERED: fentaNYL Citrate Inj 100 MCG/2 ML Ampul ONE ×2 (15:27→15:51)
[2018-10-16 15:47] LABS: Bilirubin,Urine Negative (Negative); Clarity,Urine Clear (Clear); Color,Urine Straw (Yellw/Straw); Glucose,Urine (UA) 150 mg/dL (Negative); Leukocyte Esterase,Urine Negative (Negative); Nitrite,Urine Negative (Negative); Specific Gravity,Urine 1.012 (1.002-1.035)
--- NOTE | 2018-10-16 16:03 | P.RAD ---
Post Procedure Progress Note - Procedure Information Procedure Date: 10/16/18 Supervising Radiologist: IRAIDA Gann Assisting Physician: Ciro Tolbert Estimated blood loss (mL): 1 Anesthesia: Local - Plan of Activity Patient to Unit: Nursing Unit Patient Condition: Good See PACS Report for procedural detail/treatment.
[2018-10-16] MEDS: Heparin 10,000 UNITS/10 ML Vial (for IV use) OTHER PRN (16:40)
--- NOTE | 2018-10-16 19:18 | P.PNADD ---
Addendum to Inpatient Note Reason for Addendum: Additional Documentation Additional information: 48 year-old male with a history of Type 1 Diabetes Mellitus and hypertension who presented to the emergency room in [place] complaining of less than 24 hours of nausea with vomiting. He was found to have a BUN of 80, Creatinine of 11.5, and eGFR of 6 with a potassium only mildly elevated at 5.2. Patient was subsequently transferred to the main hospital for further evaluation. Today Patient was receiving his first dialysis treatment. According to nursing staff, during dialysis his blood pressures were elevated in the 180s-170s/110s. Patient was given clonidine. 3L was taken off during treatment. Patient became unresponsive and BP lowered to 92/59. Nursing gave him back a liter of fluid and put him on oxygen. He became alert and has no recollection of passing out. Blood glucose 112 and repeat in the 140s. Family medicine team responded to Halicat. Patient denies any SOB or CP. States he's hungry and wants food. O: BP 171/102 HR 86 Patient stating on oxygen mask 100% and alert Chest: regular rate and rhythm Lungs: clear breath sounds bilaterally no crackles or wheezes Abdomen: Soft non tender, non distended Extremities: No pitting edema, no cyanosis A: 48 year old male admitted for renal failure and dialysis who loss consciousness. Most likely hypovolumic cause -EKG -serial troponin -45 mL/hr NS -continue oxygen titration -Transfer to CICU Patient seen by Dr. Nguyen and Dr. Kidd
[2018-10-16] MEDS: Heparin - SQ 10,000 UNITS/ML Vial SQ SCH (21:01)
[2018-10-16] MEDS: Insulin Detemir Inj 1,000 UNIT/10 ML Vial SQ SCH (21:02)
[2018-10-16 22:25] LABS: Alanine Aminotransferase 16 U/L (12-78); Albumin 3.2 g/dL (3.4-5.0); Alkaline Phosphatase 50 U/L (45-117); Anion Gap 12 meq/L (5-15); Aspartate Aminotransferase 14 U/L (15-37); Blood Urea Nitrogen 52 mg/dL (7-18); Calcium 8.4 mg/dL (8.5-10.1); Carbon Dioxide 24.2 meq/L (21.0-32.0); Chloride 104 meq/L (98-107); Glomerular Filtration Rate 8 mL/min (>89); Glucose,Random 134 mg/dL (74-106); Potassium 3.5 meq/L (3.5-5.1); Sodium 140 meq/L (136-145)
[2018-10-16 23:35] LABS: Hepatitis A IgM Antibody Nonreactive (Nonreactive); Hepatitits B Surface Antigen Nonreactive (Nonreactive)
[2018-10-17] MEDS: Sod Chloride 0.9% Inj 1,000 ML IV.CONT SCH ×2 (01:10→08:45)
[2018-10-17] MEDS: Insulin NovoLOG Aspart Correctional Sugar Inj SQ SCH ×5 (03:32→17:17)
[2018-10-17] MEDS: amLODIPine 5 MG Tablet PO SCH (08:41)
[2018-10-17] MEDS: Heparin - SQ 10,000 UNITS/ML Vial SQ SCH ×2 (08:41→21:54)
[2018-10-17 08:55] LABS: Troponin I 0.06 ng/mL (0.02-0.05)
[2018-10-17 08:57] LABS: Chol/HDL Ratio 3.05 Ratio; HDL Cholesterol 55.3 mg/dL (40.0-60.0)
--- NOTE | 2018-10-17 09:11 | P.PNNP ---
Subjective Interval history: Patient is alert, no SOB, eating better, no vomiting today. Physical Exam Vital signs: Vital Signs 10/16/18 12:00 10/16/18 17:24 10/16/18 18:55 Temperature 96.8 F L Pulse Rate 78 Respiratory Rate 19 Blood Pressure Pulse Oximetry 98 98 100 10/16/18 20:00 10/16/18 21:00 10/16/18 22:00 Temperature 98.0 F Pulse Rate 89 82 92 H Respiratory Rate 18 Blood Pressure 175/108 H Pulse Oximetry 97 10/16/18 23:00 10/17/18 00:00 10/17/18 01:00 Temperature 98.3 F Pulse Rate 90 98 H 88 Respiratory Rate 18 Blood Pressure 187/110 H Pulse Oximetry 99 10/17/18 02:00 10/17/18 03:00 10/17/18 03:57 Temperature 98.2 F Pulse Rate 118 H 84 85 Respiratory Rate 20 Blood Pressure 193/118 H Pulse Oximetry 100 10/17/18 04:00 10/17/18 05:00 10/17/18 06:00 Temperature Pulse Rate 77 77 78 Respiratory Rate Blood Pressure Pulse Oximetry 10/17/18 08:00 Temperature 98.1 F Pulse Rate 86 Respiratory Rate 20 Blood Pressure 198/121 H Pulse Oximetry 100 Intake & Output 10/16/18 10/17/18 10/17/18 18:59 06:59 18:59 Intake Total 300 / 300 580 / 580 Output Total 2500 / 2500 Balance 300 / 300 -1920 / -1920 Weight 97 kg Intake: IV 300 / 300 100 / 100 NS Inj 1,000 ML @ 60 mls/hr IV. 100 / 100 CONT .[id number] GIUSEPPE Rx#:[id number] Vancomycin Inj 1,000 MG In NS 250 / 250 Inj 250 ML @ 250 mls/hr IV.SIG MILL OILER GIUSEPPE Rx#:[id number] Ancef 2 GM Premix Inj 2 gm In 50 / 50 50 ml @ 100 mls/hr IV.SIG MILL OILER GIUSEPPE Rx#:[id number] Oral 480 / 480 Output: Hemodialysis Amount 2500 / 2500 Other: # Voids 3 Date of Last Bowel Movement 10/15/18 10/15/18 Narrative: GENERAL: Alert, oriented x3, NAD. SKIN: Warm and dry. HEAD: Normocephalic. EYES: No scleral icterus. No injection or drainage. NECK: Supple, trachea midline. No JVD or lymphadenopathy. CARDIOVASCULAR: Regular rate and rhythm without murmurs, gallops, or rubs. RESPIRATORY: Breath sounds equal bilaterally. No accessory muscle use. GASTROINTESTINAL: Abdomen soft, non-tender, nondistended. MUSCULOSKELETAL: No cyanosis, or edema. BACK: Nontender without obvious deformity. No CVA tenderness. Assessment and Plan - Plan Chronic kidney disease with possible some JACQUELINE Patient's renal function has not improved since being transferred from [place]. Creatinine is 11.27, BUN 85. Potassium is 4.7. Patient's baseline renal function is not known. JACQUELINE could be due to dehydration from vomiting. Patient could have underlying CKD due to diabetic nephropathy, patient has had diabetes since 1991. Renal ultrasound noted. UA is pending. PermCath done and started dialysis on 10/16. Avoid Nephrotoxic agents. Monitor fluid and electrolytes. Hypertension Monitor BP. Patient on Clonidine for hypertension. Type I Diabetes Continue insulin coverage to maintain glucose levels between 140 and 180. Patient possibly has end stage renal disease. The Creatinine was 2.4 in 2005. D/W the patient and about possible terminal gauger HD.
--- NOTE | 2018-10-17 09:35 | P.PN ---
Subjective Interval history: Follow-up for acute kidney injury, hypertension, diabetes mellitus and slurred speech. Patient is doing well currently. His blood pressure is elevated 198 systolic. Patient denies any chest pain, shortness of breath, fever or chills. He tolerated dialysis yesterday well. Physical Exam Vital signs: Vital Signs 10/16/18 12:00 10/16/18 17:24 10/16/18 18:55 Temperature 96.8 F L Pulse Rate 78 Respiratory Rate 19 Blood Pressure Pulse Oximetry 98 98 100 10/16/18 20:00 10/16/18 21:00 10/16/18 22:00 Temperature 98.0 F Pulse Rate 89 82 92 H Respiratory Rate 18 Blood Pressure 175/108 H Pulse Oximetry 97 10/16/18 23:00 10/17/18 00:00 10/17/18 01:00 Temperature 98.3 F Pulse Rate 90 98 H 88 Respiratory Rate 18 Blood Pressure 187/110 H Pulse Oximetry 99 10/17/18 02:00 10/17/18 03:00 10/17/18 03:57 Temperature 98.2 F Pulse Rate 118 H 84 85 Respiratory Rate 20 Blood Pressure 193/118 H Pulse Oximetry 100 10/17/18 04:00 10/17/18 05:00 10/17/18 06:00 Temperature Pulse Rate 77 77 78 Respiratory Rate Blood Pressure Pulse Oximetry 10/17/18 08:00 Temperature 98.1 F Pulse Rate 86 Respiratory Rate 20 Blood Pressure 198/121 H Pulse Oximetry 100 Intake & Output 10/16/18 10/17/18 10/17/18 18:59 06:59 18:59 Intake Total 300 / 300 580 / 580 Output Total 2500 / 2500 Balance 300 / 300 -1920 / -1920 Weight 97 kg Intake: IV 300 / 300 100 / 100 NS Inj 1,000 ML @ 60 mls/hr IV. 100 / 100 CONT .[id number] [facility] Rx#:[id number] Vancomycin Inj 1,000 MG In NS 250 / 250 Inj 250 ML @ 250 mls/hr IV.SIG [employer]ICE PRESIDENT PAYMENT [facility]PPE Rx#:[id number] Ancef 2 GM Premix Inj 2 gm In 50 / 50 50 ml @ 100 mls/hr IV.SIG [employer] PRESIDENT PAYMENT GISUEPPE Rx#:[id number] Oral 480 / 480 Output: Hemodialysis Amount 2500 / 2500 Other: # Voids 3 Date of Last Bowel Movement 10/15/18 10/15/18 Narrative: GENERAL: Alert, oriented x3, NAD. SKIN: Warm and dry. HEAD: Normocephalic. EYES: No scleral icterus. No injection or drainage. NECK: Supple, trachea midline. No JVD or lymphadenopathy. CARDIOVASCULAR: Regular rate and rhythm without murmurs, gallops, or rubs. RESPIRATORY: Breath sounds equal bilaterally. No accessory muscle use. GASTROINTESTINAL: Abdomen soft, non-tender, nondistended. MUSCULOSKELETAL: No cyanosis, or edema. BACK: Nontender without obvious deformity. No CVA tenderness. Results - Labs CBC & Chem 7: 10/16/18 11:29 10/16/18 20:50 Laboratory Results - last 24 hr 10/16/18 10/16/18 10/16/18 11:29 11:29 11:29 WBC 10.6 RBC 3.70 L Hgb 9.9 L Hct 30.4 L MCV 82.1 MCH 26.7 L MCHC 32.5 RDW 15.3 Plt Count 350 MPV 7.3 Neut % (Auto) 84.1 H Lymph % (Auto) 9.8 [place] % (Auto) 5.9 Eos % (Auto) 0.0 Baso % (Auto) 0.2 Neut # (Auto) 8.9 H Lymph # (Auto) 1.0 [place] # (Auto) 0.6 Eos # (Auto) 0.0 Baso # (Auto) 0.0 WBC Differential . Differential Comment Auto diff final PT 10.9 INR 1.1 Sodium Potassium Chloride Carbon Dioxide Anion Gap BUN Creatinine Estimated GFR POC Glucose Random Glucose Calcium Phosphorus 8.1 H Total Bilirubin AST ALT Alkaline Phosphatase Troponin I Total Protein Albumin Triglycerides Cholesterol LDL Cholesterol, Calc HDL Cholesterol Cholesterol/HDL Ratio Urine Color Urine Clarity Urine pH Ur Specific [place] Urine Protein Urine Glucose (UA) Urine Ketones Urine Occult Blood Urine Nitrate Urine Bilirubin Urine Urobilinogen Ur Leukocyte Esterase Urine RBC Urine WBC Ur Microscopic Review Nasal Screen MRSA (PCR) Hepatitis A IgM Ab Hep Bs Antigen Hep B Core IgM Ab Hep C IgG Ab 10/16/18 10/16/18 10/16/18 12:05 14:40 16:00 WBC RBC Hgb Hct MCV MCH MCHC RDW Plt Count MPV Neut % (Auto) Lymph % (Auto) [place] % (Auto) Eos % (Auto) Baso % (Auto) Neut # (Auto) Lymph # (Auto) [place] # (Auto) Eos # (Auto) Baso # (Auto) WBC Differential Differential Comment PT INR Sodium Potassium Chloride Carbon Dioxide Anion Gap BUN Creatinine Estimated GFR POC Glucose 120 H Random Glucose Calcium Phosphorus Total Bilirubin AST ALT Alkaline Phosphatase Troponin I Total Protein Albumin Triglycerides Cholesterol LDL Cholesterol, Calc HDL Cholesterol Cholesterol/HDL Ratio Urine Color Straw Urine Clarity Clear Urine pH 6.0 Ur Specific [place] 1.012 Urine Protein 500 or greater Urine Glucose (UA) 150 H Urine Ketones Negative Urine Occult Blood Small H Urine Nitrate Negative Urine Bilirubin Negative Urine Urobilinogen Less than 2 Ur Leukocyte Esterase Negative Urine RBC Less than 1 Urine WBC 2 Ur Microscopic Review Not Reportable Nasal Screen MRSA (PCR) Hepatitis A IgM Ab Nonreactive Hep Bs Antigen Nonreactive Hep B Core IgM Ab Nonreactive Hep C IgG Ab Nonreactive 10/16/18 10/16/18 10/16/18 17:57 18:49 20:50 WBC RBC Hgb Hct MCV MCH MCHC RDW Plt Count MPV Neut % (Auto) Lymph % (Auto) [place] % (Auto) Eos % (Auto) Baso % (Auto) Neut # (Auto) Lymph # (Auto) [place] # (Auto) Eos # (Auto) Baso # (Auto) WBC Differential Differential Comment PT INR Sodium 140 Potassium 3.5 D Chloride 104 Carbon Dioxide 24.2 Anion Gap 12 BUN 52 H Creatinine 8.40 H Estimated GFR 8 L POC Glucose 117 H 145 H Random Glucose 134 H Calcium 8.4 L Phosphorus Total Bilirubin 0.3 AST 14 L ALT 16 Alkaline Phosphatase 50 Troponin I Total Protein 7.0 Albumin 3.2 L Triglycerides Cholesterol LDL Cholesterol, Calc HDL Cholesterol Cholesterol/HDL Ratio Urine Color Urine Clarity Urine pH Ur Specific [place] Urine Protein Urine Glucose (UA) Urine Ketones Urine Occult Blood Urine Nitrate Urine Bilirubin Urine Urobilinogen Ur Leukocyte Esterase Urine RBC Urine WBC Ur Microscopic Review Nasal Screen MRSA (PCR) Hepatitis A IgM Ab Hep Bs Antigen Hep B Core IgM Ab Hep C IgG Ab 10/16/18 10/16/18 10/16/18 20:50 20:58 23:30 WBC RBC Hgb Hct MCV MCH MCHC RDW Plt Count MPV Neut % (Auto) Lymph % (Auto) [place] % (Auto) Eos % (Auto) Baso % (Auto) Neut # (Auto) Lymph # (Auto) [place] # (Auto) Eos # (Auto) Baso # (Auto) WBC Differential Differential Comment PT INR Sodium Potassium Chloride Carbon Dioxide Anion Gap BUN Creatinine Estimated GFR POC Glucose 154 H Random Glucose Calcium Phosphorus Total Bilirubin AST ALT Alkaline Phosphatase Troponin I 0.04 Total Protein Albumin Triglycerides Cholesterol LDL Cholesterol, Calc HDL Cholesterol Cholesterol/HDL Ratio Urine Color Urine Clarity Urine pH Ur Specific [place] Urine Protein Urine Glucose (UA) Urine Ketones Urine Occult Blood Urine Nitrate Urine Bilirubin Urine Urobilinogen Ur Leukocyte Esterase Urine RBC Urine WBC Ur Microscopic Review Nasal Screen MRSA (PCR) Not detected Hepatitis A IgM Ab Hep Bs Antigen Hep B Core IgM Ab Hep C IgG Ab 10/17/18 10/17/18 10/17/18 01:48 03:10 08:03 WBC RBC Hgb Hct MCV MCH MCHC RDW Plt Count MPV Neut % (Auto) Lymph % (Auto) [place] % (Auto) Eos % (Auto) Baso % (Auto) Neut # (Auto) Lymph # (Auto) [place] # (Auto) Eos # (Auto) Baso # (Auto) WBC Differential Differential Comment PT INR Sodium Potassium Chloride Carbon Dioxide Anion Gap BUN Creatinine Estimated GFR POC Glucose 134 H Random Glucose Calcium Phosphorus Total Bilirubin AST ALT Alkaline Phosphatase Troponin I 0.05 0.06 H Total Protein Albumin Triglycerides Cholesterol LDL Cholesterol, Calc HDL Cholesterol Cholesterol/HDL Ratio Urine Color Urine Clarity Urine pH Ur Specific [place] Urine Protein Urine Glucose (UA) Urine Ketones Urine Occult Blood Urine Nitrate Urine Bilirubin Urine Urobilinogen Ur Leukocyte Esterase Urine RBC Urine WBC Ur Microscopic Review Nasal Screen MRSA (PCR) Hepatitis A IgM Ab Hep Bs Antigen Hep B Core IgM Ab Hep C IgG Ab 10/17/18 10/17/18 08:03 08:41 WBC RBC Hgb Hct MCV MCH MCHC RDW Plt Count MPV Neut % (Auto) Lymph % (Auto) [place] % (Auto) Eos % (Auto) Baso % (Auto) Neut # (Auto) Lymph # (Auto) [place] # (Auto) Eos # (Auto) Baso # (Auto) WBC Differential Differential Comment PT INR Sodium Potassium Chloride Carbon Dioxide Anion Gap BUN Creatinine Estimated GFR POC Glucose 131 H Random Glucose Calcium Phosphorus Total Bilirubin AST ALT Alkaline Phosphatase Troponin I Total Protein Albumin Triglycerides 134 Cholesterol 169 LDL Cholesterol, Calc 87 HDL Cholesterol 55.3 Cholesterol/HDL Ratio 3.05 Urine Color Urine Clarity Urine pH Ur Specific [place] Urine Protein Urine Glucose (UA) Urine Ketones Urine Occult Blood Urine Nitrate Urine Bilirubin Urine Urobilinogen Ur Leukocyte Esterase Urine RBC Urine WBC Ur Microscopic Review Nasal Screen MRSA (PCR) Hepatitis A IgM Ab Hep Bs Antigen Hep B Core IgM Ab Hep C IgG Ab - Imaging Impressions Abdomen/Bladder Ultrasound 10/16/18 00:00 CONCLUSION: 1. Echogenic kidneys consistent with medical renal disease. 2. No sonographic evidence for obstructive uropathy. Carotid Doppler Study 10/16/18 00:00 CONCLUSION: 1. Right Internal Carotid Artery: No significant stenosis or atherosclerotic plaque is visualized. 2. Left Internal Carotid Artery: No significant stenosis or atherosclerotic plaque is visualized. Head MRI 10/16/18 00:00 CONCLUSION: 1. No acute areas of hemorrhage or mass effect are seen. 2. Increased signal within the cerebral white matter likely related to small vessel ischemic change versus other demyelinating conditions. There is also some increased signal/demyelination in the anterior aspect of the anup. 3. Suspected old area of hemorrhage in the right periventricular region. Head MRA 10/16/18 00:00 CONCLUSION: Negative MRA Cow ([place]) non contrast. - Procedures Permacath placement by interventional radiology on 10/16/2018. Assessment and Plan - Plan Mr. Dubon is a very pleasant 48 year-old male with a history of Type 1 Diabetes Mellitus and hypertension who presented to the emergency room in [place] complaining of less than 24 hours of nausea with vomiting. He was found to have a BUN of 80, Creatinine of 11.5, and eGFR of 6 with a potassium only mildly elevated at 5.2. Patient was subsequently transferred to the main hospital for further evaluation. Acute renal failure No history of kidney disease. On admission, Creatinine 11.27, GFR 6, potassium 4.7, sodium 143. Appreciate nephrology input. After dialysis, sodium 140, potassium 3.5, BUN 52 , creatinine 8.40. We will repeat BMP in the morning. Hypertension -BP is elevated in the upper 190s systolic. Possibly a rebound hypertension - patient was on Clonidine at home. -Patient is on Amlodipine 5mg Qday per Nephrology. -We will start hydralazine 25 mg p.o. 3 times daily. We may consider switching amlodipine to nifedipine. Continue clonidine 0.1 mg every 6 hours as needed for blood pressures above 180 systolic. Diabetes mellitus Type 1 -Currently BG well controlled. Goal 140-180. Currently around 120-150. -Continue sliding scale insulin. Will continue Levemir 5 units QHS. Anemia - likely due to chronic inflammatory condition (DM, nephropathy) -Hgb stable at 9.9. Erythropoietin per nephrology. Slurred speech Imaging studies including MRI studies are negative for any acute findings. Full code. Heparin SQ 5000 BID.
[2018-10-17] MEDS: hydrALAZINE 25 MG Tablet PO SCH ×2 (10:13→17:18)
--- NOTE | 2018-10-17 13:18 | ECG ---
Date Performed: 10/16/2018 Time Performed: 19:05:58 PTAGE: 48 years EKG: Sinus rhythm POSSIBLE LEFT ATRIAL ENLARGEMENT LEFT VENTRICULAR HYPERTROPHY AND ST-T CHANGE ABNORMAL ECG PREVIOUS TRACING : 12/07/2001 11.35 Compared to previous tracing, voltage has increase and R-wa ve is now noted. Clinical correlation is recommended DOCTOR: Juan Perea Interpretating Date/Time 10/17/2018 13:16:32
--- NOTE | 2018-10-17 16:58 | IR ---
EXAM DATE: 10/16/2018 4:27 PM EST AGE/SEX: 48 years / Male INDICATIONS: Patient presented to ER with nausea and vomiting. CLINICAL DATA: This is the patient's initial encounter. Patient reports that signs and symptoms have been present for 2 days and indicates a pain score of 0/10. MEDICAL/SURGICAL HISTORY: Hypertension. Diabetes. Tonsillectomy. arthroplasty of left ankle COMPARISON: No prior exams available for comparison. FLUORO TIME (min): 0.4 IMAGE SERIES: 2 ACCESS SITE: Right internal jugular vein SEDATION TIME (min): 30 MEDICATION(S): 2 mg midazolam (Versed) IV 150 mcg fentanyl (Sublimaze) IV Prophylactic antibiotics were administered with appropriate pre-procedure timing. Vancomycin within 2 hrs of procedure, Ancef (or alternative) within 1 hr of procedure. DEVICE(S): 23 CM GAITAN CATH . . PROCEDURE: 1. Ultrasound-guided venipuncture. 2. PermaCath placement. 3. Conscious sedation with continuous EKG and oximetry monitoring. The risks, benefits and alternatives to the procedure were explained and verbal and written consent w as obtained. The site was prepped in sterile fashion. Full sterile technique was used, including ca p, mask, sterile gloves and gown and a large sterile sheet. Hand hygiene and 2% chlorhexidine and/or betadine/alcohol prep was utilized per protocol for cutaneous antisepsis. Sterile gel and sterile p robe cover were utilized for ultrasound guidance. The skin and subcutaneous tissues were infiltrated with local anesthetic solution. With ultrasound and fluoroscopic guidance a dermatotomy was created over the prescribed vein. A micr opuncture set was used to access the targeted vein and serial dilatation was performed to accept the prescribed length catheter. A subcutaneous tunnel was created in a retrograde fashion the catheter w as pulled through the tunnel. The catheter was flushed and assembled and locked with heparin. The c atheter was sutured in place. Conscious sedation was performed with the prescribed dosages and duration as above in the presence of an independent trained radiology nurse to assist in the monitoring of the patient. EKG and oximetry remained stable throughout the procedure. The patient tolerated the procedure well and there were n o complications. The patient was sent to post anesthesia recovery in stable condition. CONCLUSION: 1. Uncomplicated PermaCath placement as above. Electronically signed by: Ciro Tolbert MD 10/17/2018 4:56 PM EST
[2018-10-17] MEDS: Insulin Detemir Inj 1,000 UNIT/10 ML Vial SQ SCH (21:56)
[2018-10-18] MEDS: hydrALAZINE 25 MG Tablet PO SCH ×3 (04:00→16:50)
[2018-10-18] MEDS: Sod Chloride 0.9% Inj 1,000 ML IV.CONT SCH ×2 (06:49→16:04)
[2018-10-18] MEDS: Insulin NovoLOG Aspart Correctional Sugar Inj SQ SCH ×4 (07:16→17:11)
[2018-10-18] MEDS: amLODIPine 5 MG Tablet PO SCH ×2 (09:04→21:14)
[2018-10-18] MEDS: Heparin - SQ 10,000 UNITS/ML Vial SQ SCH ×2 (09:05→21:15)
--- NOTE | 2018-10-18 10:24 | P.PNNP ---
Subjective Interval history: Patient is sitting on the chair, no SOB, not eating well. Physical Exam Vital signs: Vital Signs 10/17/18 11:00 10/17/18 12:00 10/17/18 13:00 Temperature 98.6 F Pulse Rate 90 98 H 106 H Respiratory Rate 16 Blood Pressure 197/124 H Pulse Oximetry 94 L 10/17/18 14:00 10/17/18 15:00 10/17/18 16:00 Temperature Pulse Rate 86 87 92 H Respiratory Rate Blood Pressure Pulse Oximetry 10/17/18 17:00 10/17/18 18:00 10/17/18 19:00 Temperature Pulse Rate 98 H 103 H 95 H Respiratory Rate Blood Pressure Pulse Oximetry 10/17/18 20:00 10/17/18 20:03 10/17/18 21:00 Temperature 98.6 F Pulse Rate 106 H 104 H Respiratory Rate Blood Pressure 150/108 H Pulse Oximetry 99 99 10/17/18 22:00 10/17/18 23:00 10/18/18 00:00 Temperature 98.6 F Pulse Rate 102 H 95 H 91 H Respiratory Rate 14 Blood Pressure 153/108 H Pulse Oximetry 99 10/18/18 01:00 10/18/18 02:00 10/18/18 03:00 Temperature Pulse Rate 92 H 88 87 Respiratory Rate Blood Pressure Pulse Oximetry 10/18/18 04:00 10/18/18 05:00 10/18/18 06:00 Temperature 98.4 F Pulse Rate 90 69 92 H Respiratory Rate 16 Blood Pressure 176/103 H Pulse Oximetry 98 10/18/18 07:00 10/18/18 08:00 Temperature Pulse Rate 90 92 H Respiratory Rate Blood Pressure Pulse Oximetry Intake & Output 10/17/18 10/18/18 10/18/18 18:59 06:59 18:59 Intake Total 240 / 240 1720 / 1720 Output Total 2500 / 2500 Balance -2260 / -2260 1720 / 1720 Weight 97.4 kg Intake: IV 1000 / 1000 NS Inj 1,000 ML @ 60 mls/hr IV. 1000 / 1000 CONT .[id number] Rx#:[id number] Oral 240 / 240 720 / 720 Output: Hemodialysis Amount 2500 / 2500 Other: # Voids 2 2 Date of Last Bowel Movement 10/17/18 # Bowel Movements 2 Narrative: GENERAL: Alert, oriented x3, NAD. SKIN: Warm and dry. HEAD: Normocephalic. EYES: No scleral icterus. No injection or drainage. NECK: Supple, trachea midline. No JVD or lymphadenopathy. CARDIOVASCULAR: Regular rate and rhythm without murmurs, gallops, or rubs. RESPIRATORY: Breath sounds equal bilaterally. No accessory muscle use. GASTROINTESTINAL: Abdomen soft, non-tender, nondistended. MUSCULOSKELETAL: No cyanosis, or edema. BACK: Nontender without obvious deformity. No CVA tenderness. Assessment and Plan - Plan Chronic kidney disease with possible some JACQUELINE Patient's renal function has not improved since being transferred from [place]. Creatinine is 11.27, BUN 85. Potassium is 4.7. Patient's baseline renal function is not known. JACQUELINE could be due to dehydration from vomiting. Patient could have underlying CKD due to diabetic nephropathy, patient has had diabetes since 1991. Renal ultrasound noted. UA is pending. PermCath done and started dialysis on 10/16. Avoid Nephrotoxic agents. Monitor fluid and electrolytes. Hypertension Monitor BP. Patient on Clonidine for hypertension. Type I Diabetes Continue insulin coverage to maintain glucose levels between 140 and 180. Patient possibly has end stage renal disease. The Creatinine was 2.4 in 2005. BP is elevated, increase Amlodipine. HD done yesterday.
--- NOTE | 2018-10-18 11:35 | P.PN ---
Subjective Interval history: seen with at bedside review of records -they were told of a previous creatinine of 2.- 3.3 in 2006 admission upset and states they were never told about this denies any history of HTN, CVA, CAD known diabetic- insulin requiring- on Lantus states ff up with a PCP - [place]- Dr. Tenorio- who they say never mentioned about renal dysfunction Physical Exam Vital signs: Vital Signs 10/17/18 12:00 10/17/18 13:00 10/17/18 14:00 Temperature 98.6 F Pulse Rate 98 H 106 H 86 Respiratory Rate 16 Blood Pressure 197/124 H Pulse Oximetry 94 L 10/17/18 15:00 10/17/18 16:00 10/17/18 17:00 Temperature Pulse Rate 87 92 H 98 H Respiratory Rate Blood Pressure Pulse Oximetry 10/17/18 18:00 10/17/18 19:00 10/17/18 20:00 Temperature 98.6 F Pulse Rate 103 H 95 H 106 H Respiratory Rate Blood Pressure 150/108 H Pulse Oximetry 99 10/17/18 20:03 10/17/18 21:00 10/17/18 22:00 Temperature Pulse Rate 104 H 102 H Respiratory Rate Blood Pressure Pulse Oximetry 99 10/17/18 23:00 10/18/18 00:00 10/18/18 01:00 Temperature 98.6 F Pulse Rate 95 H 91 H 92 H Respiratory Rate 14 Blood Pressure 153/108 H Pulse Oximetry 99 10/18/18 02:00 10/18/18 03:00 10/18/18 04:00 Temperature 98.4 F Pulse Rate 88 87 90 Respiratory Rate 16 Blood Pressure 176/103 H Pulse Oximetry 98 10/18/18 05:00 10/18/18 06:00 10/18/18 07:00 Temperature Pulse Rate 69 92 H 90 Respiratory Rate Blood Pressure Pulse Oximetry 10/18/18 08:00 10/18/18 09:00 10/18/18 10:00 Temperature 98.3 F Pulse Rate 93 H 86 90 Respiratory Rate 16 Blood Pressure 151/94 H Pulse Oximetry 97 10/18/18 10:48 Temperature Pulse Rate 92 H Respiratory Rate Blood Pressure Pulse Oximetry Intake & Output 10/17/18 10/18/18 10/18/18 18:59 06:59 18:59 Intake Total 240 / 240 1720 / 1720 Output Total 2500 / 2500 Balance -2260 / -2260 1720 / 1720 Weight 97.4 kg Intake: IV 1000 / 1000 NS Inj 1,000 ML @ 60 mls/hr IV. 1000 / 1000 CONT .[id number] Rx#:[id number] Oral 240 / 240 720 / 720 Output: Hemodialysis Amount 2500 / 2500 Other: # Voids 2 2 Date of Last Bowel Movement 10/17/18 # Bowel Movements 2 Narrative: GENERAL: Alert, oriented x3, NAD. warm dry permacath in place EYES: No scleral icterus. No injection or drainage. NECK: Supple, trachea midline. No JVD or lymphadenopathy. CARDIOVASCULAR: Regular rate and rhythm without murmurs, gallops, or rubs. RESPIRATORY: Breath sounds equal bilaterally. No accessory muscle use. GASTROINTESTINAL: Abdomen soft, non-tender, nondistended. MUSCULOSKELETAL: No cyanosis, or edema. BACK: Nontender without obvious deformity. No CVA tenderness. Results - Labs CBC & Chem 7: 10/21/18 05:52 10/21/18 05:52 Laboratory Results - last 24 hr 10/17/18 10/17/18 10/17/18 08:03 11:46 16:11 POC Glucose 187 H 102 Hemoglobin A1c 8.0 H 10/17/18 10/18/18 10/18/18 22:01 04:04 07:42 POC Glucose 177 H 138 H 129 H Hemoglobin A1c - Imaging Impressions Central Venous Line 10/16/18 00:00 CONCLUSION: 1. Uncomplicated PermaCath placement as above. - Procedures Permacath placement by interventional radiology on 10/16/2018. Assessment and Plan - Plan Mr. Dubon is a 48 year-old male with a history of Diabetes Mellitus insulin requiring and hypertension who presented to the emergency room in [place] complaining of less than 24 hours of nausea with vomiting. He was found to have a BUN of 80, Creatinine of 11.5, and eGFR of 6 with a potassium only mildly elevated at 5.2. Patient was subsequently transferred to the main hospital for further evaluation. Acute renal failure jose d with underlying CKD from DM nephropathy - likely Endstage On admission, Creatinine 11.27, GFR 6, potassium 4.7, sodium 143. Appreciate nephrology input. creatinine 8.40. started on HD 10/16 - review old EMR was here on 2005 creatinine was 2.4- 3.3 and was actually seen by Nephrology during that admission - patient does not recall Hypertension -BP is elevated in the upper 190s systolic. -Patient is on Amlodipine 5mg - increased to bid by Nephrology -We will start hydralazine 25 mg p.o. 3 times daily. Continue clonidine 0.1 mg every 6 hours as needed for blood pressures above 180 systolic. Diabetes mellitus insulin requiring - A1C- 8.0 d/w him goals -Currently BG - Currently around 120-150. -Continue sliding scale insulin. Will continue Levemir 5 units QHS. -d/w him about complication- Podiatry ff up as OP Anemia - likely due to CKD -Hgb stable at 9.9. Erythropoietin per nephrology. Slurred speech- more of stuttering speech - states better - no motor deficits. Seen by Dr. Barker Imaging studies including MRI studies are negative for any acute findings. -PT ff , speech therapy ff along with us Full code. Heparin SQ 5000 BID.
[2018-10-18] MEDS: Insulin Detemir Inj 1,000 UNIT/10 ML Vial SQ SCH (21:14)
[2018-10-19] MEDS: Insulin NovoLOG Aspart Correctional Sugar Inj SQ SCH ×6 (00:25→23:00)
[2018-10-19] MEDS: hydrALAZINE 25 MG Tablet PO SCH ×3 (03:29→17:32)
[2018-10-19 07:10] LABS: Calcium 8.1 mg/dL (8.5-10.1); Carbon Dioxide 26.8 meq/L (21.0-32.0)
[2018-10-19] MEDS: Metoprolol Tartrate 25 MG Tablet PO SCH ×2 (09:23→21:47)
[2018-10-19] MEDS: amLODIPine 5 MG Tablet PO SCH ×2 (09:23→21:47)
[2018-10-19] MEDS: Heparin - SQ 10,000 UNITS/ML Vial SQ SCH ×2 (09:24→21:44)
[2018-10-19] MEDS: Sod Chloride 0.9% Inj 1,000 ML IV.CONT SCH (09:26)
--- NOTE | 2018-10-19 10:04 | P.PNIM ---
Subjective Interval history: Repeat dialysis planned for today. Patient has no new complaints. He does report that his right arm is somewhat numb and his speech deficits continue. Etiology for this may be related to toxicity from renal failure as neurologic workup with brain imaging is negative for CVA. Physical Exam Vital signs: Last Vital Signs Temp 98.4 F 10/19/18 08:00 Pulse 91 H 10/19/18 09:00 Resp 14 10/19/18 08:00 BP 159/111 H 10/19/18 08:00 Pulse Ox 99 10/19/18 08:00 Intake & Output 10/17/18 10/18/18 10/19/18 10/20/18 06:59 06:59 06:59 06:59 Intake Total 880 / 880 1960 / 1960 1680 / 1680 Output Total 2500 / 2500 2500 / 2500 875 / 875 Balance -1620 / -1620 -540 / -540 805 / 805 Weight 97 kg 97.4 kg 97.8 kg Narrative: GENERAL: NAD, A&Ox3, stutter when talking HEAD: Normocephalic. NECK: Supple, trachea midline. No lymphadenopathy. EYES: No scleral icterus. No injection or drainage. CARDIOVASCULAR: Regular rate and rhythm without murmurs, gallops, or rubs. RESPIRATORY: Breath sounds equal bilaterally. No accessory muscle use. GASTROINTESTINAL: Abdomen soft, non-tender, nondistended. MUSCULOSKELETAL: No cyanosis, or edema. SKIN: Warm and dry. NEURO: No focal neurological deficits. Right arm paresthesias. Results Labs CBC & Chem 7: 10/16/18 11:29 10/19/18 06:29 Procedures Procedures: Permacath placement by interventional radiology on 10/16/2018. Assessment and Plan Plan 48 year-old male admitted secondary to acute renal failure on chronic kidney disease Acute renal failure CKD from DM nephropathy Continue monitoring renal function Nephrology following Hemodialysis continued Renal workup in process Hypertension Not yet controlled Continue hydralazine Continue clonidine as needed Metoprolol added Diabetes mellitus type 2 Follow blood sugars Insulin sliding scale Diabetic diet Continue Levemir Anemia Likely related to chronic kidney disease Follow hemoglobin levels Erythropoietin Slurred speech Negative neurologic workup Continue dialysis and monitor DVT Prophylaxis Heparin SQ 5000 BID. Progress Note: Quality VTE Deep Vein Thrombosis/Pulmonary Embolism Present on Admission: No
--- NOTE | 2018-10-19 11:08 | P.PNNP ---
Subjective Interval history: Patient was seen, no distress. Patient last dialyzed on Friday. Patient has PermCath in place for dialysis. Consult to vascular surgeon was placed for AVF. Discussed with patient the need for dialysis 3 times per week. Patient's phosphorus is 8.1, Renvela has been ordered. <Ricky Esteves - Last Filed: 10/19/18 10:53> Physical Exam Vital signs: Vital Signs 10/18/18 11:51 10/18/18 12:00 10/18/18 13:00 Temperature 98.2 F Pulse Rate 83 82 Respiratory Rate 18 Blood Pressure 180/108 H Pulse Oximetry 98 100 10/18/18 13:45 10/18/18 14:00 10/18/18 14:08 Temperature Pulse Rate 84 86 Respiratory Rate Blood Pressure 175/115 H Pulse Oximetry 10/18/18 16:00 10/18/18 17:00 10/18/18 17:41 Temperature 97.8 F Pulse Rate 87 100 H 97 H Respiratory Rate 18 Blood Pressure 170/102 H Pulse Oximetry 100 10/18/18 19:00 10/18/18 20:00 10/18/18 21:00 Temperature 98.1 F Pulse Rate 93 H 82 88 Respiratory Rate 20 Blood Pressure 174/108 H Pulse Oximetry 99 10/18/18 22:00 10/18/18 23:00 10/19/18 00:00 Temperature 97.9 F Pulse Rate 88 92 H 90 Respiratory Rate 16 Blood Pressure 161/113 H Pulse Oximetry 96 10/19/18 01:00 10/19/18 02:00 10/19/18 03:00 Temperature Pulse Rate 82 88 84 Respiratory Rate Blood Pressure Pulse Oximetry 10/19/18 04:00 10/19/18 05:00 10/19/18 06:00 Temperature 98.0 F Pulse Rate 93 H 93 H 87 Respiratory Rate 14 Blood Pressure 188/113 H Pulse Oximetry 99 10/19/18 07:00 10/19/18 08:00 10/19/18 09:00 Temperature 98.4 F Pulse Rate 88 86 91 H Respiratory Rate 14 Blood Pressure 159/111 H Pulse Oximetry 99 10/19/18 10:00 10/19/18 10:23 Temperature Pulse Rate 97 H Respiratory Rate Blood Pressure Pulse Oximetry 99 Intake & Output 10/18/18 10/19/18 10/19/18 18:59 06:59 18:59 Intake Total 960 / 960 720 / 720 Output Total 875 / 875 Balance 85 / 85 720 / 720 Weight 97.8 kg Intake: Oral 960 / 960 720 / 720 Output: Urine 875 / 875 Other: # Voids 2 Date of Last Bowel Movement 10/18/18 - Constitutional no acute distress - Routine HEENT Exam Head: Present: normocephalic Eye: Present: EOMI, PERRL ENT: Present: mucous membranes moist - Routine Neck Exam Present: trachea midline. Absent: tracheal deviation - Routine Respiratory Exam Present: CTA bilaterally. Absent: accessory muscle use - Routine Cardiovascular Exam Present: RRR - Routine Abdominal Exam Present: soft, normoactive bowel sounds - Routine Neurological Exam Present: alert, oriented X3 - Routine Psychiatric Exam Present: normal affect <Ricky Esteves - Last Filed: 10/19/18 10:53> Vital signs: Vital Signs 10/18/18 22:00 10/18/18 23:00 10/19/18 00:00 Temperature 97.9 F Pulse Rate 88 92 H 90 Respiratory Rate 16 Blood Pressure 161/113 H Pulse Oximetry 96 10/19/18 01:00 10/19/18 02:00 10/19/18 03:00 Temperature Pulse Rate 82 88 84 Respiratory Rate Blood Pressure Pulse Oximetry 10/19/18 04:00 10/19/18 05:00 10/19/18 06:00 Temperature 98.0 F Pulse Rate 93 H 93 H 87 Respiratory Rate 14 Blood Pressure 188/113 H Pulse Oximetry 99 10/19/18 07:00 10/19/18 08:00 10/19/18 09:00 Temperature 98.4 F Pulse Rate 88 86 91 H Respiratory Rate 14 Blood Pressure 159/111 H Pulse Oximetry 99 10/19/18 10:00 10/19/18 10:23 10/19/18 11:00 Temperature Pulse Rate 97 H 92 H Respiratory Rate Blood Pressure Pulse Oximetry 99 10/19/18 12:00 10/19/18 13:00 10/19/18 14:00 Temperature 98.3 F Pulse Rate 90 92 H 91 H Respiratory Rate 14 Blood Pressure 163/115 H Pulse Oximetry 100 10/19/18 15:00 10/19/18 16:00 10/19/18 17:00 Temperature 98.5 F Pulse Rate 94 H 85 100 H Respiratory Rate 18 Blood Pressure 176/114 H Pulse Oximetry 99 10/19/18 18:00 Temperature Pulse Rate 96 H Respiratory Rate Blood Pressure Pulse Oximetry Intake & Output 10/19/18 10/19/18 10/20/18 06:59 18:59 06:59 Intake Total 720 / 720 640 / 640 Balance 720 / 720 640 / 640 Weight 97.8 kg Intake: Oral 720 / 720 640 / 640 Other: # Voids 2 4 Date of Last Bowel Movement 10/18/18 <Raul Petit - Last Filed: 10/19/18 21:21> Assessment and Plan - Plan ESRD Dialysis will be continued TTS. Patient last dialyzed on Friday. Patient has PermCath in place for dialysis. Patient was admitted for JACQUELINE. Baseline renal function was not known at the time. It was suspected patient had underlying CKD due to diabetic nephropathy, patient has had diabetes since 1991. Patient had proteinuria. Renal ultrasound reflected kidney disease. Consult to vascular surgeon was placed for AVF. Vein mapping was ordered. Avoid Gadolinium. Avoid Nephrotoxic agents. Monitor fluid and electrolytes. Anemia Epogen to continue with dialysis. Metabolic Bone Disease Patient's phosphorus is 8.1, Renvela has been ordered. Monitor phosphorus intermittently. Hypertension Monitor BP. Patient on Amlodipine, Hydralazine, Metoprolol. Type I Diabetes Continue insulin coverage to maintain glucose levels between 140 and 180. <Ricky Esteves - Last Filed: 10/19/18 10:53> - Plan patient was seen and examined. Likely has reached ESRD. We will continue dialysis 3 times/week. Consult vascular surgery for AVF placement. <Raul Petit - Last Filed: 10/19/18 21:21>
--- NOTE | 2018-10-19 15:22 | US ---
EXAM DATE: 10/19/2018 3:15 PM EST AGE/SEX: 48 years / Male INDICATIONS: Arteriovenous fistula placement. CLINICAL DATA: This is the patient's initial encounter. Patient reports that signs and symptoms have been present for 1 day and indicates a pain score of 2/10. MEDICAL/SURGICAL HISTORY: Diabetes mellitus type I. Hypertension. MRSA. Tonsillectomy. Arthro plasty of left ankle. COMPARISON: No prior exams available for comparison. FINDINGS: Right Upper Extremity: There is a right PICC line in place. The right subclavian vein was difficult to visualize. However there is good flow in the right axillary vein. There is good flow in the right brachial vein. There is thrombus noted in the right proximal cephalic vein and at the antecubital fos sa. The right ulnar and radial veins are patent. Left Upper Extremity: There is evidence of thrombus in the left distal basilic vein. Otherwise the r est of the left deep venous structures are patent. The left subclavian, axillary and brachial veins a re all patent. The left ulnar and radial veins are patent. Other: None. CONCLUSION: 1. No definite evidence of DVT in the right upper extremity. However the right subclavian vein was n ot visualized. There is superficial thrombus in the proximal right cephalic vein and at the antecubit al fossa. 2. There is evidence of focal deep venous thrombosis in the left distal basilic vein. Otherwise, the rest of the deep venous structures of the left upper extremity are patent. Electronically signed by: Emilio Shannon MD 10/19/2018 3:21 PM EST
--- NOTE | 2018-10-19 15:57 | US ---
EXAM DATE: 10/19/2018 3:21 PM EST AGE/SEX: 48 years / Male INDICATIONS: Arteriovenous fistula placement. CLINICAL DATA: This is the patient's initial encounter. Patient reports that signs and symptoms have been present for 1 day and indicates a pain score of 2/10. MEDICAL/SURGICAL HISTORY: Diabetes mellitus type I. Hypertension. MRSA. Tonsillectomy. Arthro plasty of left ankle. COMPARISON: [facility] [place], [place] VENOUS DOPPLER ARM BI, 10/19/2018. . MEASUREMENTS: RIGHT: CEPHALIC: Origin:__Non-visualized Mid-Arm:__Non-visualized Elbow:__Non-visualized Forearm:__Non-visualized Wrist:__Non-visualized BASILIC: Origin:__2 mm Mid-Arm:__1 mm Elbow:__1 mm ARTERIES: Brachial:__6 mm Ulnar:__2 mm Radial:__1 mm VEINS: Radial:__1 mm Ulnar:__2 mm LEFT: CEPHALIC: Origin:__1 mm Mid-Arm:__2 mm Elbow:__2 mm Forearm:__Non-visualized Wrist:__Non-visualized BASILIC: Origin:__3 mm Mid-Arm:__3 mm Elbow:__4 mm ARTERIES: Brachial:__5 mm Ulnar:__1 mm Radial:__1 mm VEINS: Radial:__1 mm Ulnar:__1 mm FINDINGS: The venous system of the upper extremities are patent by color Doppler imaging. Measurements of the arm veins (in mm) are listed above. CONCLUSION: 1. Venous mapping as above. Electronically signed by: Emilio Shannon MD 10/19/2018 3:56 PM EST
[2018-10-19] MEDS: Insulin Detemir Inj 1,000 UNIT/10 ML Vial SQ SCH (21:46)
[2018-10-20] MEDS: hydrALAZINE 25 MG Tablet PO SCH ×3 (03:27→17:38)
[2018-10-20 05:28] LABS: Baso % (Auto) 0.3 % (0.0-2.0); Eos % (Auto) 0.4 % (0.0-4.0); Hematocrit 31.6 % (39.0-51.0); Hemoglobin 10.5 gm/dL (13.0-17.0); Lymph # (Auto) 1.2 th/mm3 (1.0-4.8); Lymph % (Auto) 12.9 % (9.0-44.0); Mean Corpuscular HGB Conc 33.2 % (32.0-36.0); Mean Corpuscular Hemoglobin 26.5 pg (27.0-34.0); Mean Platelet Volume 7.3 fL (7.0-11.0); Mono # (Auto) 0.6 th/mm3 (0.0-0.9); Mono % (Auto) 6.3 % (0.0-8.0); Neut # (Auto) 7.6 th/mm3 (1.8-7.7); Neut % (Auto) 80.1 % (16.0-70.0); Platelet Count 312 th/mm3 (150-450); Red Blood Count 3.95 mil/mm3 (4.50-5.90); Red Cell Distribution Width 14.8 % (11.6-17.2); White Blood Count 9.5 th/mm3 (4.0-11.0)
[2018-10-20 05:50] LABS: Anion Gap 9 meq/L (5-15)
[2018-10-20 05:56] LABS: Alanine Aminotransferase 7 U/L (12-78); Albumin 2.7 g/dL (3.4-5.0); Alkaline Phosphatase 42 U/L (45-117); Aspartate Aminotransferase 10 U/L (15-37); Blood Urea Nitrogen 60 mg/dL (7-18); Calcium 8.6 mg/dL (8.5-10.1); Carbon Dioxide 27.1 meq/L (21.0-32.0); Chloride 102 meq/L (98-107); Glomerular Filtration Rate 7 mL/min (>89); Glucose,Random 129 mg/dL (74-106); Potassium 4.1 meq/L (3.5-5.1); Sodium 138 meq/L (136-145); Total Protein 6.4 g/dL (6.4-8.2)
[2018-10-20] MEDS: Insulin NovoLOG Aspart Correctional Sugar Inj SQ SCH ×5 (06:29→21:50)
[2018-10-20] MEDS: Sod Chloride 0.9% Inj 1,000 ML IV.CONT SCH ×2 (06:29→19:15)
--- NOTE | 2018-10-20 09:27 | P.PNNP ---
Subjective Interval history: Mr. Dubon is overall stable. His BP is high. Had Vein mapping. Physical Exam Vital signs: Vital Signs 10/19/18 10:00 10/19/18 10:23 10/19/18 11:00 Temperature Pulse Rate 97 H 92 H Respiratory Rate Blood Pressure Pulse Oximetry 99 10/19/18 12:00 10/19/18 13:00 10/19/18 14:00 Temperature 98.3 F Pulse Rate 90 92 H 91 H Respiratory Rate 14 Blood Pressure 163/115 H Pulse Oximetry 100 10/19/18 15:00 10/19/18 16:00 10/19/18 17:00 Temperature 98.5 F Pulse Rate 94 H 85 100 H Respiratory Rate 18 Blood Pressure 176/114 H Pulse Oximetry 99 10/19/18 18:00 10/19/18 19:00 10/19/18 20:00 Temperature Pulse Rate 96 H 98 H 94 H Respiratory Rate 16 Blood Pressure 180/109 H Pulse Oximetry 99 10/19/18 21:00 10/19/18 22:00 10/19/18 23:00 Temperature Pulse Rate 94 H 94 H 104 H Respiratory Rate Blood Pressure Pulse Oximetry 10/20/18 00:00 10/20/18 01:00 10/20/18 02:00 Temperature 98.4 F Pulse Rate 94 H 92 H 94 H Respiratory Rate 16 Blood Pressure 189/111 H Pulse Oximetry 99 10/20/18 03:00 10/20/18 04:00 10/20/18 05:00 Temperature 98.2 F Pulse Rate 92 H 96 H 94 H Respiratory Rate 16 Blood Pressure 169/107 H Pulse Oximetry 98 10/20/18 06:00 10/20/18 07:00 10/20/18 08:00 Temperature 97.8 F Pulse Rate 94 H 94 H 93 H Respiratory Rate 18 Blood Pressure 176/97 H Pulse Oximetry 100 Intake & Output 10/19/18 10/20/18 10/20/18 18:59 06:59 18:59 Intake Total 640 / 640 240 / 240 Balance 640 / 640 240 / 240 Weight 95.5 kg Intake: Oral 640 / 640 240 / 240 Other: # Voids 4 1 Date of Last Bowel Movement 10/18/18 10/18/18 Narrative: GENERAL: NAD, A&Ox3, stutter when talking HEAD: Normocephalic. NECK: Supple, trachea midline. No lymphadenopathy. EYES: No scleral icterus. No injection or drainage. CARDIOVASCULAR: Regular rate and rhythm without murmurs, gallops, or rubs. RESPIRATORY: Breath sounds equal bilaterally. No accessory muscle use. GASTROINTESTINAL: Abdomen soft, non-tender, nondistended. MUSCULOSKELETAL: No cyanosis, or edema. SKIN: Warm and dry. NEURO: No focal neurological deficits. Assessment and Plan - Assessment (1) End stage renal disease Code(s): N18.6 - End stage renal disease Status: Acute Plan: patient has reached ESRD most likely. The etiology appears to diabetic nephropathy. Serologies negative so far. He has been informed that he needs dialysis 3 times/week. Vein mapping ordered, obtained. Vascular surgery consulted. Dialysis today. 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 (2) Essential (primary) hypertension Code(s): I10 - Essential (primary) hypertension Status: Acute Plan: BP currently high, may improve with dialysis and fluid removal. Added Losartan. Other medications were reviewed. (3) Type 2 diabetes mellitus with diabetic chronic kidney disease Code(s): E11.22 - Type 2 diabetes mellitus with diabetic chronic kidney disease Status: Acute Plan: Patient has proteinuria. Serologies negative. (4) Metabolic bone disease Code(s): E88.9 - Metabolic disorder, unspecified; M90.80 - Osteopathy in diseases classified elsewhere, unspecified site Status: Acute Plan: He does not like Renvela, change to phosLo
--- NOTE | 2018-10-20 10:10 | P.CONVS ---
History of Present Illness Service: Cardiovascular Consult date: 10/20/18 Reason for Consult: AVF Evaluation Primary Care Provider: Rohini Tenorio Chief Complaint: Nausea and vomiting History of Present Illness: 48/M with a PMH of DM and HTN presented with nausea, vomiting and weakness since Friday10/14/18 of last week Pt newly Dx with ESRD on HD T/T/S through a right chest PermCath Consulted for an AVF creation Pt is right handed Reviewed Bilateral Upper Extremity U/S /Vein mapping Review of Systems Constitutional: Denies chills, Denies fever(s), Denies headache(s) Eyes: Denies blurry vision, Denies change in vision Cardiovascular: Denies chest pain, Denies shortness of breath Gastrointestinal: Reports vomiting, Denies abdominal pain PMFSH - History History Provided By: Patient - Medical History Medical History: Medical History (Last Reviewed 10/20/18 @ 10:00 by Massiel Kimball) History of MRSA infection Hypertension Type 1 diabetes mellitus Onset Date: ~1991 - Surgical History Surgical History: Surgical History (Last Reviewed 10/20/18 @ 10:00 by Massiel Kimball) History of arthroplasty of left ankle Onset Date: ~1987 Hx of tonsillectomy Onset Date: ~1976 - Family History Family History: Family History (Last Reviewed 10/20/18 @ 10:00 by Massiel Kimball) Other Family history not known due to adoption - Social History I have reviewed the patient's Social History: Yes - Tobacco History Second Hand Smoke Exposure: No Tobacco Use In Past 30 Days: No Smoking Status: Never smoker Tobacco Type: Cigarettes - Alcohol History How Often Do You Have a Drink Containing Alcohol: Never - Substance Use History Substance History: No History of Abuse - Immunization History Tetanus Immunization: <5 Years Hx Influenza Vaccine This Season: No Medications and Allergies Allergies Allergy/AdvReac Type Severity Reaction Status Date / Time No Known Allergies Allergy Verified 10/15/18 19:04 Home Medications Medication Instructions Recorded Confirmed Type insulin aspart U-100 [Novolog 1 sliding scale dose SUBCUT UD 10/15/18 10/15/18 History U-100 Insulin aspart] insulin glargine [Lantus Solostar 25 unit SUBCUT DAILY 10/15/18 10/15/18 History U-100 Insulin] Active Medications: Active Medications Acetaminophen (Tylenol) 650 mg PO Q4H PRN PRN Reason: Temp > 100.4/headache Acetaminophen (Tylenol) 650 mg PO UNSCH PRN PRN Reason: SEE LABEL COMMENTS Amlodipine Besylate (Norvasc) 5 mg PO BID [facility] Last Admin: 10/19/18 21:47 Dose: 5 mg Bisacodyl (Dulcolax Supp) 10 mg RECTAL DAILY PRN PRN Reason: SEVERE CONSITIPATION Calcium Acetate (Phoslo) 1,334 mg PO TID [facility] Clonidine HCl (Catapres) 0.1 mg PO Q6H PRN PRN Reason: sbp>180 or dbp>100 if HR > 60 Last Admin: 10/19/18 04:45 Dose: 0.1 mg Dextrose (D50w Vial) 50 ml IV.PUSH UNSCH PRN PRN Reason: per Hypoglycemic Protocol Diphenhydramine HCl (Benadryl) 25 mg PO UNSCH PRN PRN Reason: SEE LABEL COMMENTS Epoetin Hector (Epogen Inj) 10,000 unit IV.PUSH UNSCH PRN PRN Reason: SEE LABEL COMMENTS Last Admin: 10/16/18 16:40 Dose: 10,000 unit Gelatin (Gelfoam 12 Mm/7 Mm Topical) 1 foam TOPICAL PRN PRN PRN Reason: help stop bleeding from site Gentamicin Sulfate (Gentamicin Inj) 20 mg OTHER WITH DIALYSIS PRN PRN Reason: Dwell Gentamycin Lock Last Admin: 10/16/18 16:40 Dose: 20 mg Glucagon (Glucagon Inj) 1 mg OTHER UNSCH PRN PRN Reason: per Hypoglycemic Protocol Heparin Sodium (Porcine) (Heparin Inj) 8,000 units OTHER WITH DIALYSIS PRN PRN Reason: for machine prime Heparin Sodium (Porcine) (Heparin Inj) 1,000 units OTHER WITH DIALYSIS PRN PRN Reason: Dwell Heparin to Fill Catheter Last Admin: 10/16/18 16:40 Dose: 1,000 units Heparin Sodium (Porcine) (Heparin Inj) 5,000 units SQ Q12HR [facility] Last Admin: 10/19/18 21:44 Dose: 5,000 units Hydralazine HCl (Apresoline) 25 mg PO Q8H [facility] Last Admin: 10/20/18 03:27 Dose: 25 mg Sodium Chloride (Ns Inj) 1,000 mls @ 60 mls/hr IV.CONT .[id number] [facility] Last Admin: 10/20/18 06:29 Dose: Not Given Sodium Chloride (Ns Inj) 1,000 mls @ 0 mls/hr OTHER .Q0M PRN PRN Reason: for prime and rinse back Sodium Chloride (Ns Inj) 1,000 mls @ 200 mls/hr OTHER .Q5H PRN PRN Reason: for dialyzer flush PRN Sodium Chloride (Ns Inj) 1,000 mls @ 0 mls/hr IV.CONT .Q0M PRN PRN Reason: hypotension / volume replace Albumin Human (Flexbumin 25% Inj) 100 mls @ 60 mls/hr IV.SIG WITH DIALYSIS PRN PRN Reason: hypotension / volume replace Vancomycin HCl 1,000 mg/ (Sodium Chloride) 250 mls @ 250 mls/hr IV.SIG TRACK OILER [facility] Stop: 10/20/18 11:59 Last Infusion: 10/16/18 16:02 Dose: Infused Cefazolin Sodium/Dextrose (Ancef 2 Gm Premix Inj) 2 gm in 50 mls @ 100 mls/hr IV.SIG TRACK OILER [facility] Stop: 10/20/18 11:59 Last Infusion: 10/16/18 16:01 Dose: Infused Insulin Aspart (Novolog Insulin Correctional Sugar Inj) 0 unit SQ ACHS AND 3AM GIUSEPPE; Protocol Last Admin: 10/20/18 08:12 Dose: Not Given Insulin Detemir (Levemir Inj) 5 unit SQ HS [facility] Last Admin: 10/19/18 21:46 Dose: 5 unit Losartan Potassium (Cozaar) 25 mg PO DAILY [facility] Mannitol (Mannitol Inj) 12.5 gm IV.PUSH UNSCH PRN PRN Reason: hypotension / volume replace Metoprolol Tartrate (Lopressor) 50 mg PO BID [facility] Nitroglycerin (Nitrostat Sl) 0.4 mg SL Q5M PRN PRN Reason: CHEST PAIN Ondansetron HCl (Zofran Inj) 4 mg IV.PUSH Q6H PRN PRN Reason: NAUSEA OR VOMITING Last Admin: 10/19/18 10:44 Dose: 4 mg Ondansetron HCl (Zofran Inj) 4 mg IV.PUSH UNSCH PRN PRN Reason: NAUSEA OR VOMITING Prochlorperazine Edisylate (Compazine Inj) 5 mg IV.PUSH Q4H PRN PRN Reason: n/v if zofran ineffective Last Admin: 10/16/18 00:39 Dose: 5 mg Sennosides (Senokot) 17.2 mg PO Q12H PRN PRN Reason: Moderate Constipation Sevelamer Carbonate (Renvela) 800 mg PO TID [facility] Last Admin: 10/19/18 17:32 Dose: 800 mg Sodium Chloride (Ns Flush) 2 ml IV.FLUSH BID [facility] Last Admin: 10/19/18 23:01 Dose: 2 ml Sodium Chloride (Ns Flush) 2 ml IV.FLUSH PRN PRN PRN Reason: FLUSH AFTER USING IV ACCESS Sodium Chloride (Ns Flush) 5 ml IV.FLUSH PRN PRN PRN Reason: flush each lumen during HD Physical Exam Vital Signs / I&O: Vital Signs 10/19/18 10:00 10/19/18 10:23 10/19/18 11:00 Temperature Pulse Rate 97 H 92 H Respiratory Rate Blood Pressure Pulse Oximetry 99 10/19/18 12:00 10/19/18 13:00 10/19/18 14:00 Temperature 98.3 F Pulse Rate 90 92 H 91 H Respiratory Rate 14 Blood Pressure 163/115 H Pulse Oximetry 100 10/19/18 15:00 10/19/18 16:00 10/19/18 17:00 Temperature 98.5 F Pulse Rate 94 H 85 100 H Respiratory Rate 18 Blood Pressure 176/114 H Pulse Oximetry 99 10/19/18 18:00 10/19/18 19:00 10/19/18 20:00 Temperature Pulse Rate 96 H 98 H 94 H Respiratory Rate 16 Blood Pressure 180/109 H Pulse Oximetry 99 10/19/18 21:00 10/19/18 22:00 10/19/18 23:00 Temperature Pulse Rate 94 H 94 H 104 H Respiratory Rate Blood Pressure Pulse Oximetry 10/20/18 00:00 10/20/18 01:00 10/20/18 02:00 Temperature 98.4 F Pulse Rate 94 H 92 H 94 H Respiratory Rate 16 Blood Pressure 189/111 H Pulse Oximetry 99 10/20/18 03:00 10/20/18 04:00 10/20/18 05:00 Temperature 98.2 F Pulse Rate 92 H 96 H 94 H Respiratory Rate 16 Blood Pressure 169/107 H Pulse Oximetry 98 10/20/18 06:00 10/20/18 07:00 10/20/18 08:00 Temperature 97.8 F Pulse Rate 94 H 94 H 93 H Respiratory Rate 18 Blood Pressure 176/97 H Pulse Oximetry 100 Intake & Output 10/19/18 10/20/18 10/20/18 18:59 06:59 18:59 Intake Total 640 / 640 240 / 240 Balance 640 / 640 240 / 240 Weight 95.5 kg Intake: Oral 640 / 640 240 / 240 Other: # Voids 4 1 Date of Last Bowel Movement 10/18/18 10/18/18 Neuro: GCS 15 Speech clear CN 2-12 intact Neck: No JVD distention Heart: RRR w/o M/G/R Lungs: Even and CTA Abdomen: S/NT Vascular: 2+ palpable R/L Radial pulses UE warm w/ motor intact Extremities: UE 5/5 LE 5/5 Laboratory Results - last 24 hr 10/16/18 10/19/18 10/19/18 20:50 12:08 16:47 WBC RBC Hgb Hct MCV MCH MCHC RDW Plt Count MPV Neut % (Auto) Lymph % (Auto) [place] % (Auto) Eos % (Auto) Baso % (Auto) Neut # (Auto) Lymph # (Auto) [place] # (Auto) Eos # (Auto) Baso # (Auto) WBC Differential Differential Comment Sodium Potassium Chloride Carbon Dioxide Anion Gap BUN Creatinine Estimated GFR POC Glucose 140 H 139 H Random Glucose Calcium Total Bilirubin AST ALT Alkaline Phosphatase Total Protein Albumin SABRINA Screen Neg 10/19/18 10/20/18 10/20/18 21:44 03:33 04:28 WBC 9.5 RBC 3.95 L Hgb 10.5 L Hct 31.6 L MCV 80.0 MCH 26.5 L MCHC 33.2 RDW 14.8 Plt Count 312 MPV 7.3 Neut % (Auto) 80.1 H Lymph % (Auto) 12.9 [place] % (Auto) 6.3 Eos % (Auto) 0.4 Baso % (Auto) 0.3 Neut # (Auto) 7.6 Lymph # (Auto) 1.2 [place] # (Auto) 0.6 Eos # (Auto) 0.0 Baso # (Auto) 0.0 WBC Differential . Differential Comment Auto diff final Sodium Potassium Chloride Carbon Dioxide Anion Gap BUN Creatinine Estimated GFR POC Glucose 163 H 129 H Random Glucose Calcium Total Bilirubin AST ALT Alkaline Phosphatase Total Protein Albumin SABRINA Screen 10/20/18 10/20/18 04:38 07:41 WBC RBC Hgb Hct MCV MCH MCHC RDW Plt Count MPV Neut % (Auto) Lymph % (Auto) [place] % (Auto) Eos % (Auto) Baso % (Auto) Neut # (Auto) Lymph # (Auto) [place] # (Auto) Eos # (Auto) Baso # (Auto) WBC Differential Differential Comment Sodium 138 Potassium 4.1 Chloride 102 Carbon Dioxide 27.1 Anion Gap 9 BUN 60 H Creatinine 10.20 H* D Estimated GFR 7 L POC Glucose 123 H Random Glucose 129 H Calcium 8.6 Total Bilirubin 0.3 AST 10 L ALT 7 L Alkaline Phosphatase 42 L Total Protein 6.4 D Albumin 2.7 L SABRINA Screen Microbiology 10/16/18 01:00 Gastric Occult Blood - Final Gastric Fluid Gastrocult positive Impressions Upper Extremity Ultrasound 10/19/18 00:00 CONCLUSION: 1. Venous mapping as above. Venous Doppler Study 10/19/18 00:00 CONCLUSION: 1. No definite evidence of DVT in the right upper extremity. However the right subclavian vein was not visualized. There is superficial thrombus in the proximal right cephalic vein and at the antecubital fossa. 2. There is evidence of focal deep venous thrombosis in the left distal basilic vein. Otherwise, the rest of the deep venous structures of the left upper extremity are patent. Assessment and Plan - Plan 48/M recently started HD AVF planning Plan Discussed and reviewed AVF creation process w/ pt and Reviewed UE duplex-Thrombus in the LEFT distal basilic vein Planning L UE AVF vs AVG w/ Dr. Adkins potentially Friday10/21/18 Massiel Kimball NP [facility]/[employer] [phone] I saw and examined the patient, agree with the [employer]ULT [employer]IST[employer] DIRECTOR A/P: Date of service 10/19/18 Plan AVF on 10/21/18 Thank you for allowing us to participate in this patient care. If he have any questions please do not hesitate to call my cell phone. Bolivar Adkins MD [facility] [phone]
--- NOTE | 2018-10-20 11:37 | P.PNIM ---
Subjective Interval history: Blood pressure remains elevated. Creatinine has increased from 8.8 to 10.2. Dialysis planned for today. Physical Exam Vital signs: Last Vital Signs Temp 97.8 F 10/20/18 08:00 Pulse 100 H 10/20/18 11:00 Resp 18 10/20/18 08:00 BP 176/97 H 10/20/18 08:00 Pulse Ox 100 10/20/18 10:44 Intake & Output 10/18/18 10/19/18 10/20/18 10/21/18 06:59 06:59 06:59 06:59 Intake Total 1960 / 1960 1680 / 1680 880 / 880 Output Total 2500 / 2500 875 / 875 Balance -540 / -540 805 / 805 880 / 880 Weight 97.4 kg 97.8 kg 95.5 kg Narrative: GENERAL: NAD, A&Ox3, stutter when talking HEAD: Normocephalic. NECK: Supple, trachea midline. No lymphadenopathy. EYES: No scleral icterus. No injection or drainage. CARDIOVASCULAR: Regular rate and rhythm without murmurs, gallops, or rubs. RESPIRATORY: Breath sounds equal bilaterally. No accessory muscle use. GASTROINTESTINAL: Abdomen soft, non-tender, nondistended. MUSCULOSKELETAL: No cyanosis, or edema. SKIN: Warm and dry. NEURO: No focal neurological deficits. Right arm paresthesias. Results Labs CBC & Chem 7: 10/20/18 04:28 10/20/18 04:38 Labs: Microbiology 10/16/18 01:00 Gastric Fluid Gastric Occult Blood - Final Gastrocult positive Imaging Imaging: Impressions Upper Extremity Ultrasound 10/19/18 00:00 CONCLUSION: 1. Venous mapping as above. Venous Doppler Study 10/19/18 00:00 CONCLUSION: 1. No definite evidence of DVT in the right upper extremity. However the right subclavian vein was not visualized. There is superficial thrombus in the proximal right cephalic vein and at the antecubital fossa. 2. There is evidence of focal deep venous thrombosis in the left distal basilic vein. Otherwise, the rest of the deep venous structures of the left upper extremity are patent. Procedures Procedures: Permacath placement by interventional radiology on 10/16/2018. Assessment and Plan (1) End stage renal disease: Code(s): N18.6 - End stage renal disease Status: Acute (2) Essential (primary) hypertension: Code(s): I10 - Essential (primary) hypertension Status: Acute (3) Type 2 diabetes mellitus with diabetic chronic kidney disease: Code(s): E11.22 - Type 2 diabetes mellitus with diabetic chronic kidney disease Status: Acute (4) Metabolic bone disease: Code(s): E88.9 - Metabolic disorder, unspecified; M90.80 - Osteopathy in diseases classified elsewhere, unspecified site Status: Acute Plan 48 year-old male admitted secondary to acute renal failure on chronic kidney disease Continue dialysis. Continue monitoring renal function. Metoprolol increased today. 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 twice daily to 50 mg p.o. twice daily Diabetes mellitus type 2 Follow blood sugars Insulin sliding scale Diabetic diet Continue Levemir Anemia Likely related to chronic kidney disease Follow hemoglobin levels Erythropoietin Slurred speech Negative neurologic workup Continue dialysis and monitor DVT Prophylaxis Heparin SQ 5000 BID. Progress Note: Quality VTE Deep Vein Thrombosis/Pulmonary Embolism Present on Admission: No _ (1) Type 2 diabetes mellitus with diabetic chronic kidney disease Qualifiers: Diabetes mellitus longterm insulin use: Chronic kidney disease stage:
[2018-10-20] MEDS: Heparin 10,000 UNITS/10 ML Vial (for IV use) OTHER PRN (12:15)
[2018-10-20] MEDS: Calcium Acetate 667 MG Capsule PO SCH ×2 (13:18→17:38)
[2018-10-20] MEDS: Heparin - SQ 10,000 UNITS/ML Vial SQ SCH ×2 (13:20→21:46)
[2018-10-20] MEDS: amLODIPine 5 MG Tablet PO SCH ×2 (13:20→21:46)
[2018-10-20] MEDS: Metoprolol Tartrate 50 MG Tablet PO SCH ×2 (13:30→21:46)
[2018-10-20] MEDS: Metoprolol Tartrate 25 MG Tablet PO SCH (15:44)
[2018-10-20] MEDS: Insulin Detemir Inj 1,000 UNIT/10 ML Vial SQ SCH (21:50)
[2018-10-21] MEDS: Insulin NovoLOG Aspart Correctional Sugar Inj SQ SCH ×5 (04:08→20:01)
[2018-10-21] MEDS: hydrALAZINE 25 MG Tablet PO SCH ×3 (04:08→19:25)
[2018-10-21 07:04] LABS: Alanine Aminotransferase 8 U/L (12-78); Albumin 2.8 g/dL (3.4-5.0); Alkaline Phosphatase 46 U/L (45-117); Anion Gap 9 meq/L (5-15); Aspartate Aminotransferase 8 U/L (15-37); Blood Urea Nitrogen 47 mg/dL (7-18); Calcium 8.7 mg/dL (8.5-10.1); Carbon Dioxide 29.6 meq/L (21.0-32.0); Chloride 99 meq/L (98-107); Glomerular Filtration Rate 8 mL/min (>89); Glucose,Random 140 mg/dL (74-106); Potassium 4.2 meq/L (3.5-5.1); Sodium 138 meq/L (136-145); Total Protein 6.8 g/dL (6.4-8.2)
[2018-10-21 07:08] LABS: Baso # (Auto) 0.1 th/mm3 (0.0-0.2); Baso % (Auto) 0.5 % (0.0-2.0); Eos % (Auto) 0.4 % (0.0-4.0); Hemoglobin 10.8 gm/dL (13.0-17.0); Lymph % (Auto) 8.8 % (9.0-44.0); Mean Corpuscular HGB Conc 32.7 % (32.0-36.0); Mean Corpuscular Hemoglobin 26.4 pg (27.0-34.0); Mean Corpuscular Volume 80.8 fL (80.0-100.0); Mean Platelet Volume 7.6 fL (7.0-11.0); Mono # (Auto) 0.7 th/mm3 (0.0-0.9); Neut # (Auto) 9.8 th/mm3 (1.8-7.7); Neut % (Auto) 84.3 % (16.0-70.0); Platelet Count 315 th/mm3 (150-450); Red Blood Count 4.09 mil/mm3 (4.50-5.90); Red Cell Distribution Width 14.9 % (11.6-17.2); White Blood Count 11.6 th/mm3 (4.0-11.0)
--- NOTE | 2018-10-21 09:02 | P.PNVS ---
- Pre-operative Note Planned Procedure: LUE avf creation Labs: WBC 11.6 th/mm3 (4.0-11.0) H 10/21/18 05:52 RBC 4.09 mil/mm3 (4.50-5.90) L 10/21/18 05:52 Hgb 10.8 gm/dL (13.0-17.0) L 10/21/18 05:52 Hct 33.0 % (39.0-51.0) L 10/21/18 05:52 MCV 80.8 fL (80.0-100.0) 10/21/18 05:52 MCH 26.4 pg (27.0-34.0) L 10/21/18 05:52 MCHC 32.7 % (32.0-36.0) 10/21/18 05:52 RDW 14.9 % (11.6-17.2) 10/21/18 05:52 Plt Count 315 th/mm3 (150-450) 10/21/18 05:52 MPV 7.6 fL (7.0-11.0) 10/21/18 05:52 INR 1.1 Ratio 10/16/18 11:29 Sodium 138 meq/L (136-145) 10/21/18 05:52 Potassium 4.2 meq/L (3.5-5.1) 10/21/18 05:52 Chloride 99 meq/L (98-107) 10/21/18 05:52 Carbon Dioxide 29.6 meq/L (21.0-32.0) 10/21/18 05:52 Anion Gap 9 meq/L (5-15) 10/21/18 05:52 BUN 47 mg/dL (7-18) H 10/21/18 05:52 Random Glucose 140 mg/dL (74-106) H 10/21/18 05:52 Calcium 8.7 mg/dL (8.5-10.1) 10/21/18 05:52 Imaging: ITS Impressions Abdomen/Bladder Ultrasound 10/16/18 00:00 CONCLUSION: 1. Echogenic kidneys consistent with medical renal disease. 2. No sonographic evidence for obstructive uropathy. Carotid Doppler Study 10/16/18 00:00 CONCLUSION: 1. Right Internal Carotid Artery: No significant stenosis or atherosclerotic plaque is visualized. 2. Left Internal Carotid Artery: No significant stenosis or atherosclerotic plaque is visualized. Central Venous Line 10/16/18 00:00 CONCLUSION: 1. Uncomplicated PermaCath placement as above. Head CT 10/16/18 00:00 CONCLUSION: 1. No acute intracranial abnormality is identified. 2. There is generalized cerebral atrophy and moderate to severe periventricular white matter low-attenuation likely representing chronic small vessel ischemic change. There additionally is encephalomalacia in the right frontal high convexity. These findings are much more severe than typically seen in a patient of this age. . Head MRI 10/16/18 00:00 CONCLUSION: 1. No acute areas of hemorrhage or mass effect are seen. 2. Increased signal within the cerebral white matter likely related to small vessel ischemic change versus other demyelinating conditions. There is also some increased signal/demyelination in the anterior aspect of the anup. 3. Suspected old area of hemorrhage in the right periventricular region. Head MRA 10/16/18 00:00 CONCLUSION: Negative MRA [place] ([place]) non contrast. Upper Extremity Ultrasound 10/19/18 00:00 CONCLUSION: 1. Venous mapping as above. Venous Doppler Study 10/19/18 00:00 CONCLUSION: 1. No definite evidence of DVT in the right upper extremity. However the right subclavian vein was not visualized. There is superficial thrombus in the proximal right cephalic vein and at the antecubital fossa. 2. There is evidence of focal deep venous thrombosis in the left distal basilic vein. Otherwise, the rest of the deep venous structures of the left upper extremity are patent. Consent: Informed consent has been obtained from Dexter Dubon JR. I have explained the procedure in detail and discussed the risks, benefits, and potential complications. All questions have been answered.
[2018-10-21] MEDS: Calcium Acetate 667 MG Capsule PO SCH ×3 (10:00→19:25)
[2018-10-21] MEDS: amLODIPine 5 MG Tablet PO SCH ×2 (10:00→20:00)
[2018-10-21] MEDS: Metoprolol Tartrate 50 MG Tablet PO SCH ×2 (10:01→20:00)
[2018-10-21] MEDS: Heparin - SQ 10,000 UNITS/ML Vial SQ SCH ×2 (10:02→20:01)
[2018-10-21] MEDS ORDERED: Thrombin Topical 20,000 UNIT Spray Kit TOPICAL ONE (12:05)
[2018-10-21] MEDS ORDERED: Bupivacaine PF 0.5% Inj 10 ML Vial ONE (12:05)
[2018-10-21] MEDS ORDERED: Heparin 10,000 UNITS/10 ML Vial (for IV use) ONE (12:05)
[2018-10-21] MEDS ORDERED: Heparin/NS PF Inj 500 ML ONE (12:05)
[2018-10-21] MEDS ORDERED: Protamine Sulfate Inj 50 MG/5 ML Vial ONE (12:05)
--- NOTE | 2018-10-21 12:20 | P.PNIM ---
Subjective Interval history: Creatinine dropped from 10.2-day 0.5 status post dialysis. Patient feeling slightly better. Improvement in dysarthria. Physical Exam Vital signs: Last Vital Signs Temp 98.1 F 10/21/18 03:00 Pulse 84 10/21/18 06:00 Resp 16 10/21/18 03:00 BP 150/91 H 10/21/18 03:00 Pulse Ox 99 10/21/18 10:05 Intake & Output 10/19/18 10/20/18 10/21/18 10/22/18 06:59 06:59 06:59 06:59 Intake Total 1680 / 1680 880 / 880 920 / 920 Output Total 875 / 875 1300 / 1300 Balance 805 / 805 880 / 880 -380 / -380 Weight 97.8 kg 95.5 kg 94 kg Narrative: GENERAL: NAD, A&Ox3, stutter when talking HEAD: Normocephalic. NECK: Supple, trachea midline. No lymphadenopathy. EYES: No scleral icterus. No injection or drainage. CARDIOVASCULAR: Regular rate and rhythm without murmurs, gallops, or rubs. RESPIRATORY: Breath sounds equal bilaterally. No accessory muscle use. GASTROINTESTINAL: Abdomen soft, non-tender, nondistended. MUSCULOSKELETAL: No cyanosis, or edema. SKIN: Warm and dry. NEURO: No focal neurological deficits. Right arm paresthesias. Results Labs CBC & Chem 7: 10/21/18 05:52 10/21/18 05:52 Procedures Procedures: Permacath placement by interventional radiology on 10/16/2018. Assessment and Plan (1) End stage renal disease: Code(s): N18.6 - End stage renal disease Status: Acute Plan 48 year-old male admitted secondary to acute renal failure on chronic kidney disease Improved blood pressure control. Continue dialysis. Continue monitoring renal function. Dysarthria has improved. Continue to monitor neurologic symptoms. 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 twice daily to 50 mg p.o. twice daily Diabetes mellitus type 2 Follow blood sugars Insulin sliding scale Diabetic diet Continue Levemir Anemia Likely related to chronic kidney disease Follow hemoglobin levels Erythropoietin Slurred speech Negative neurologic workup Continue dialysis and monitor DVT Prophylaxis Heparin SQ 5000 BID. Progress Note: Quality VTE Deep Vein Thrombosis/Pulmonary Embolism Present on Admission: No
[2018-10-21] MEDS ORDERED: ceFAZolin 1 GM Premix Inj 2 GM/100 ML PIGGYBACK IV.SIG ONE (12:22)
--- NOTE | 2018-10-21 12:49 | P.PNNP ---
Subjective Interval history: Patient was seen, no distress, no complaints. Patient to get AVF today. Patient gets dialysis TTS. Patient can be discharged from a renal standpoint once outpatient dialysis arrangements have been made. <Ricky Esteves - Last Filed: 10/21/18 12:43> Physical Exam Vital signs: Vital Signs 10/20/18 13:00 10/20/18 14:00 10/20/18 15:00 Temperature Pulse Rate 111 H 100 H 90 Respiratory Rate Blood Pressure Pulse Oximetry 10/20/18 16:00 10/20/18 17:00 10/20/18 18:00 Temperature 97.9 F Pulse Rate 92 H 93 H 90 Respiratory Rate 18 Blood Pressure 171/110 H Pulse Oximetry 100 10/20/18 19:00 10/20/18 20:00 10/20/18 21:00 Temperature 98.0 F Pulse Rate 102 H 106 H 100 H Respiratory Rate 18 Blood Pressure 154/97 H Pulse Oximetry 100 10/20/18 22:00 10/20/18 23:00 10/21/18 00:00 Temperature 98.8 F Pulse Rate 90 96 H 100 H Respiratory Rate 18 Blood Pressure 153/99 H Pulse Oximetry 99 10/21/18 01:00 10/21/18 02:00 10/21/18 03:00 Temperature 98.1 F Pulse Rate 96 H 92 H 93 H Respiratory Rate 16 Blood Pressure 150/91 H Pulse Oximetry 100 10/21/18 04:00 10/21/18 05:00 10/21/18 06:00 Temperature Pulse Rate 88 90 84 Respiratory Rate Blood Pressure Pulse Oximetry 10/21/18 10:05 Temperature Pulse Rate Respiratory Rate Blood Pressure Pulse Oximetry 99 Intake & Output 10/20/18 10/21/18 10/21/18 18:59 06:59 18:59 Intake Total 680 / 680 240 / 240 Output Total 1300 / 1300 Balance -620 / -620 240 / 240 Weight 94 kg Intake: Oral 680 / 680 240 / 240 Output: Hemodialysis Amount 1300 / 1300 Other: # Voids 3 2 Date of Last Bowel Movement 10/19/18 - Constitutional no acute distress - Routine HEENT Exam Head: Present: normocephalic Eye: Present: EOMI, PERRL ENT: Present: mucous membranes moist - Routine Neck Exam Present: trachea midline. Absent: JVD, tracheal deviation - Routine Respiratory Exam Present: CTA bilaterally. Absent: accessory muscle use - Routine Cardiovascular Exam Present: RRR - Routine Abdominal Exam Present: soft - Routine Extremities Exam Absent: edema - Routine Neurological Exam Present: alert, oriented X3 - Routine Psychiatric Exam Present: normal affect <DanielitoVickilaishaanson - Last Filed: 10/21/18 12:43> Vital signs: Vital Signs 10/20/18 21:00 10/20/18 22:00 10/20/18 23:00 Temperature 98.8 F Pulse Rate 100 H 90 96 H Respiratory Rate 18 Blood Pressure 153/99 H Pulse Oximetry 99 10/21/18 00:00 10/21/18 01:00 10/21/18 02:00 Temperature Pulse Rate 100 H 96 H 92 H Respiratory Rate Blood Pressure Pulse Oximetry 10/21/18 03:00 10/21/18 04:00 10/21/18 05:00 Temperature 98.1 F Pulse Rate 93 H 88 90 Respiratory Rate 16 Blood Pressure 150/91 H Pulse Oximetry 100 10/21/18 06:00 10/21/18 07:00 10/21/18 08:00 Temperature Pulse Rate 84 102 H 92 H Respiratory Rate Blood Pressure Pulse Oximetry 10/21/18 08:06 10/21/18 09:00 10/21/18 10:00 Temperature 97.7 F Pulse Rate 99 H 94 H 94 H Respiratory Rate 18 Blood Pressure 183/108 H Pulse Oximetry 96 10/21/18 10:05 10/21/18 11:00 10/21/18 12:00 Temperature 98 F Pulse Rate 90 94 H Respiratory Rate 16 Blood Pressure 168/100 H Pulse Oximetry 99 98 10/21/18 13:00 10/21/18 14:00 10/21/18 15:00 Temperature Pulse Rate 90 89 92 H Respiratory Rate Blood Pressure Pulse Oximetry 10/21/18 15:30 10/21/18 15:45 10/21/18 16:00 Temperature 97.0 F L 97.2 F L Pulse Rate 87 82 92 H Respiratory Rate 12 14 14 Blood Pressure 119/76 131/84 147/84 H Pulse Oximetry 100 98 97 10/21/18 17:00 10/21/18 18:00 Temperature Pulse Rate 90 94 H Respiratory Rate Blood Pressure Pulse Oximetry Intake & Output 10/21/18 10/21/18 10/22/18 06:59 18:59 06:59 Intake Total 240 / 240 930 / 930 100 / 100 Output Total 260 / 260 Balance 240 / 240 670 / 670 100 / 100 Weight 94 kg 94 kg Intake: IV 100 / 100 Ancef 1 GM Premix Inj 2 gm In 100 / 100 100 ml @ 0 mls/hr IV.SIG .[facility]- [facility] Rx#:[id number] Oral 240 / 240 480 / 480 Anesthesia Amount 450 / 450 Output: Urine 250 / 250 Estimated Blood Loss Other: # Voids 2 Date of Last Bowel Movement 10/19/18 <Raul Petit - Last Filed: 10/21/18 20:07> Assessment and Plan - Assessment (1) End stage renal disease Code(s): N18.6 - End stage renal disease Status: Acute Plan: Patient has reached ESRD most likely. The etiology appears to diabetic nephropathy. Serologies negative so far. He has been informed that he needs dialysis 3 times/week. Vein mapping ordered, obtained. Vascular surgery, AVF to be placed today Dialysis tomorrow beverage manager is finding a dialysis unit near where he lives. Patient can be discharged from a renal standpoint once outpatient dialysis arrangements have been made. (2) Essential (primary) hypertension Code(s): I10 - Essential (primary) hypertension Status: Acute Plan: Monitor BP. Losartan added to medication regime. (3) Type 2 diabetes mellitus with diabetic chronic kidney disease Code(s): E11.22 - Type 2 diabetes mellitus with diabetic chronic kidney disease Status: Acute Plan: Patient has proteinuria. Serologies negative. (4) Metabolic bone disease Code(s): E88.9 - Metabolic disorder, unspecified; M90.80 - Osteopathy in diseases classified elsewhere, unspecified site Status: Acute Plan: Patient on PhosLo <Ricky Esteves - Last Filed: 10/21/18 12:43> - Assessment (1) End stage renal disease Code(s): N18.6 - End stage renal disease Status: Acute (2) Essential (primary) hypertension Code(s): I10 - Essential (primary) hypertension Status: Acute (3) Type 2 diabetes mellitus with diabetic chronic kidney disease Code(s): E11.22 - Type 2 diabetes mellitus with diabetic chronic kidney disease Status: Acute (4) Metabolic bone disease Code(s): E88.9 - Metabolic disorder, unspecified; M90.80 - Osteopathy in diseases classified elsewhere, unspecified site Status: Acute - Attending Attestation patient was seen and examined. Agree with above assessment and plan. Discussed with complex case manager <Raul Petit - Last Filed: 10/21/18 20:07>
--- NOTE | 2018-10-21 15:24 | P.OP ---
Preoperative Diagnosis: ESRD Postoperative Diagnosis: ESRD Date of procedure: 10/21/18 Procedure: Left upper extremity brachiocephalic arteriovenous fistula creation Anesthesia: GETA Surgeon: Bolivar Adkins MD Estimated blood loss (mL): 10 Operation and Findings: Findings: Intraoperative ultrasound was done and the left cephalic vein measure 3 mm along it's course. left brachial artery measures 4 mm AVF with good thrill. left radial and ulnar artery with +2 pulse and multiphasic signal Procedure in details The patient was taken to the OR and laid supine on the table. After general endotracheal anesthesia the patient was prepped and draped in the standard sterile fashion. Timeout was called with all members and they are in agreement. An incision was made in the antecubital fossa. Dissection was taken down through the subcutaneous tissues electrocautery. The cephalic vein was dissected. Brachial artery was dissected and encircled with Silastic loop. The median nerve identified and protected. Patient was heparinized. The cephalic vein was divided and ligated distally. Proximal distal control was obtained in the brachial artery. Arteriotomy was created and anastomosis fashioned using 6-0 Prolene suture in the running fashion. Hemostasis achieved. The wound was closed in multiple layers using Vicryl suture followed by Monocryl suture. Sterile dressing was applied. Patient tolerated the procedure well and was taken to recovery in stable condition.
[2018-10-21] MEDS ORDERED: fentaNYL Citrate Inj 100 MCG/2 ML Ampul ONE (15:46)
[2018-10-21] MEDS: Sod Chloride 0.9% Inj 1,000 ML IV.CONT SCH (19:15)
[2018-10-21] MEDS: Insulin Detemir Inj 1,000 UNIT/10 ML Vial SQ SCH (20:01)
[2018-10-21] MEDS ORDERED: Morphine Sulfate Inj 2 MG/ML Vial IV.PUSH PRN (20:12)
[2018-10-22] MEDS: Insulin NovoLOG Aspart Correctional Sugar Inj SQ SCH ×5 (03:53→21:24)
[2018-10-22] MEDS: hydrALAZINE 25 MG Tablet PO SCH ×3 (03:53→17:13)
[2018-10-22 04:36] LABS: Baso # (Auto) 0.1 th/mm3 (0.0-0.2); Baso % (Auto) 0.8 % (0.0-2.0); Eos # (Auto) 0.1 th/mm3 (0.0-0.4); Eos % (Auto) 0.6 % (0.0-4.0); Hematocrit 31.7 % (39.0-51.0); Lymph # (Auto) 1.5 th/mm3 (1.0-4.8); Lymph % (Auto) 15.3 % (9.0-44.0); Mean Corpuscular HGB Conc 31.5 % (32.0-36.0); Mean Corpuscular Hemoglobin 25.9 pg (27.0-34.0); Mean Corpuscular Volume 82.2 fL (80.0-100.0); Mean Platelet Volume 7.5 fL (7.0-11.0); Mono # (Auto) 0.9 th/mm3 (0.0-0.9); Neut # (Auto) 7.4 th/mm3 (1.8-7.7); Neut % (Auto) 74.3 % (16.0-70.0); Platelet Count 309 th/mm3 (150-450); Red Blood Count 3.86 mil/mm3 (4.50-5.90); White Blood Count 9.9 th/mm3 (4.0-11.0)
[2018-10-22 05:11] LABS: Alanine Aminotransferase 6 U/L (12-78); Albumin 2.6 g/dL (3.4-5.0); Alkaline Phosphatase 39 U/L (45-117); Anion Gap 12 meq/L (5-15); Aspartate Aminotransferase 10 U/L (15-37); Blood Urea Nitrogen 55 mg/dL (7-18); Calcium 8.2 mg/dL (8.5-10.1); Carbon Dioxide 28.1 meq/L (21.0-32.0); Chloride 98 meq/L (98-107); Glomerular Filtration Rate 7 mL/min (>89); Glucose,Random 134 mg/dL (74-106); Potassium 4.3 meq/L (3.5-5.1); Sodium 138 meq/L (136-145); Total Protein 6.2 g/dL (6.4-8.2)
[2018-10-22] MEDS: Sod Chloride 0.9% Inj 1,000 ML IV.CONT SCH ×2 (05:54→21:24)
--- NOTE | 2018-10-22 08:59 | P.PNNP ---
Subjective Interval history: patient had AVF placed yesterday. Doing well today. To have dialysis today. Patient can be discharged from renal standpoint as long as outpatient dialysis arrangements are complete. Physical Exam Vital signs: Vital Signs 10/21/18 09:00 10/21/18 10:00 10/21/18 10:05 Temperature Pulse Rate 94 H 94 H Respiratory Rate Blood Pressure Pulse Oximetry 99 10/21/18 11:00 10/21/18 12:00 10/21/18 13:00 Temperature 98 F Pulse Rate 90 94 H 90 Respiratory Rate 16 Blood Pressure 168/100 H Pulse Oximetry 98 10/21/18 14:00 10/21/18 15:00 10/21/18 15:30 Temperature 97.0 F L Pulse Rate 89 92 H 87 Respiratory Rate 12 Blood Pressure 119/76 Pulse Oximetry 100 10/21/18 15:45 10/21/18 16:00 10/21/18 17:00 Temperature 97.2 F L Pulse Rate 82 92 H 90 Respiratory Rate 14 14 Blood Pressure 131/84 147/84 H Pulse Oximetry 98 97 10/21/18 18:00 10/21/18 19:00 10/21/18 20:00 Temperature 98.8 F Pulse Rate 94 H 88 Respiratory Rate 18 Blood Pressure 165/93 H Pulse Oximetry 98 99 10/21/18 23:00 10/22/18 03:00 Temperature 98.0 F 97.8 F Pulse Rate 100 H 90 Respiratory Rate 18 18 Blood Pressure 136/75 123/67 Pulse Oximetry 98 98 Intake & Output 10/21/18 10/22/18 10/22/18 18:59 06:59 18:59 Intake Total 930 / 930 340 / 340 Output Total 260 / 260 300 / 300 Balance 670 / 670 40 / 40 Weight 94 kg 94 kg Intake: IV 100 / 100 Ancef 1 GM Premix Inj 2 gm In 100 / 100 100 ml @ 0 mls/hr IV.SIG .[facility] Rx#:[id number] Oral 480 / 480 240 / 240 Anesthesia Amount 450 / 450 Output: Urine 250 / 250 300 / 300 Estimated Blood Loss 10 / 10 Other: Date of Last Bowel Movement 10/19/18 Narrative: GENERAL: no distress. HEAD: Normocephalic. NECK: Supple, trachea midline. No lymphadenopathy. EYES: No scleral icterus. No injection or drainage. CARDIOVASCULAR: Regular rate and rhythm without murmurs, gallops, or rubs. New AVF placed yesterday is patent. Good radial pulse. RESPIRATORY: Breath sounds equal bilaterally. No accessory muscle use. GASTROINTESTINAL: Abdomen soft, non-tender, nondistended. MUSCULOSKELETAL: No cyanosis, or edema. SKIN: Warm and dry. NEURO: No focal neurological deficits. Right arm paresthesias. Assessment and Plan - Assessment (1) End stage renal disease Code(s): N18.6 - End stage renal disease Status: Acute Plan: Patient has reached ESRD. The etiology appears to diabetic nephropathy. FSGS is a possibility as well. Serologies negative so far. He has been informed that he needs dialysis 3 times/week. Vein mapping ordered, obtained. s/p AVF Dialysis today. vault manager is finding a dialysis unit near where he lives. Patient can be discharged from a renal standpoint once outpatient dialysis arrangements have been made. (2) Essential (primary) hypertension Code(s): I10 - Essential (primary) hypertension Status: Acute Plan: Monitor BP. Losartan added to medication regime. BP has improved. (3) Type 2 diabetes mellitus with diabetic chronic kidney disease Code(s): E11.22 - Type 2 diabetes mellitus with diabetic chronic kidney disease Status: Acute Plan: Patient has proteinuria. Serologies negative. ANCA pending (4) Metabolic bone disease Code(s): E88.9 - Metabolic disorder, unspecified; M90.80 - Osteopathy in diseases classified elsewhere, unspecified site Status: Acute Plan: Patient on PhosLo - Plan patient was seen and examined. Likely has reached ESRD. We will continue dialysis 3 times/week. Consult vascular surgery for AVF placement.
[2018-10-22] MEDS: Heparin - SQ 10,000 UNITS/ML Vial SQ SCH ×2 (09:47→21:24)
--- NOTE | 2018-10-22 10:48 | P.PNIM ---
Subjective Interval history: Patient complains of being tired today. He is doing well postop, no complaints of pain. Currently on dialysis today. Physical Exam Vital signs: Last Vital Signs Temp 98.6 F 10/22/18 08:10 Pulse 88 10/22/18 08:10 Resp 16 10/22/18 08:10 BP 138/88 10/22/18 08:10 Pulse Ox 98 10/22/18 08:10 Intake & Output 10/20/18 10/21/18 10/22/18 10/23/18 06:59 06:59 06:59 06:59 Intake Total 880 / 880 920 / 920 1270 / 1270 Output Total 1300 / 1300 560 / 560 Balance 880 / 880 -380 / -380 710 / 710 Weight 95.5 kg 94 kg 94 kg Narrative: GENERAL: NAD, A&Ox3, stutter when talking HEAD: Normocephalic. NECK: Supple, trachea midline. No lymphadenopathy. EYES: No scleral icterus. No injection or drainage. CARDIOVASCULAR: Regular rate and rhythm without murmurs, gallops, or rubs. RESPIRATORY: Breath sounds equal bilaterally. No accessory muscle use. GASTROINTESTINAL: Abdomen soft, non-tender, nondistended. MUSCULOSKELETAL: No cyanosis, or edema. SKIN: Warm and dry. NEURO: No focal neurological deficits. Right arm paresthesias. Results Labs CBC & Chem 7: 10/22/18 03:50 10/22/18 03:50 Procedures Procedures: Permacath placement by interventional radiology on 10/16/2018. Assessment and Plan (1) End stage renal disease: Code(s): N18.6 - End stage renal disease Status: Acute Plan 48 year-old male admitted secondary to acute renal failure on chronic kidney disease Doing well today. Continue dialysis. Continue monitoring renal function. Continue to monitor neurologic symptoms. 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 twice daily to 50 mg p.o. twice daily Diabetes mellitus type 2 Follow blood sugars Insulin sliding scale Diabetic diet Continue Levemir Anemia Likely related to chronic kidney disease Follow hemoglobin levels Erythropoietin Slurred speech Negative neurologic workup Continue dialysis and monitor DVT Prophylaxis Heparin SQ 5000 BID. Progress Note: Quality VTE Deep Vein Thrombosis/Pulmonary Embolism Present on Admission: No
[2018-10-22] MEDS: Heparin 10,000 UNITS/10 ML Vial (for IV use) OTHER PRN (11:36)
[2018-10-22] MEDS: Calcium Acetate 667 MG Capsule PO SCH ×3 (12:16→17:13)
--- NOTE | 2018-10-22 12:39 | P.PNVS ---
Subjective Post Op Day #: 1 Objective Vital Signs / I&O: Vital Signs 10/21/18 13:00 10/21/18 14:00 10/21/18 15:00 Temperature Pulse Rate 90 89 92 H Respiratory Rate Blood Pressure Pulse Oximetry 10/21/18 15:30 10/21/18 15:45 10/21/18 16:00 Temperature 97.0 F L 97.2 F L Pulse Rate 87 82 92 H Respiratory Rate 12 14 14 Blood Pressure 119/76 131/84 147/84 H Pulse Oximetry 100 98 97 10/21/18 17:00 10/21/18 18:00 10/21/18 19:00 Temperature 98.8 F Pulse Rate 90 94 H 88 Respiratory Rate 18 Blood Pressure 165/93 H Pulse Oximetry 98 10/21/18 20:00 10/21/18 23:00 10/22/18 03:00 Temperature 98.0 F 97.8 F Pulse Rate 100 H 90 Respiratory Rate 18 18 Blood Pressure 136/75 123/67 Pulse Oximetry 99 98 98 10/22/18 07:00 10/22/18 08:10 10/22/18 11:00 Temperature 98.6 F Pulse Rate 78 88 87 Respiratory Rate 16 Blood Pressure 138/88 Pulse Oximetry 98 Intake & Output 10/21/18 10/22/18 10/22/18 18:59 06:59 18:59 Intake Total 930 / 930 340 / 340 Output Total 260 / 260 300 / 300 1000 / 1000 Balance 670 / 670 40 / 40 -1000 / -1000 Weight 94 kg 94 kg Intake: IV 100 / 100 Ancef 1 GM Premix Inj 2 gm In 100 / 100 100 ml @ 0 mls/hr IV.SIG .[facility]- [facility] Rx#:[id number] Oral 480 / 480 240 / 240 Anesthesia Amount 450 / 450 Output: Urine 250 / 250 300 / 300 Hemodialysis Amount 1000 / 1000 Estimated Blood Loss 10 / 10 Other: Date of Last Bowel Movement 10/19/18 10/19/18 Exam: LUE wound CDI good thrill in AVF Palpable L radial pulse Laboratory Results - last 24 hr 10/21/18 10/21/18 10/21/18 15:45 17:04 19:58 WBC RBC Hgb Hct MCV MCH MCHC RDW Plt Count MPV Neut % (Auto) Lymph % (Auto) Ralls % (Auto) Eos % (Auto) Baso % (Auto) Neut # (Auto) Lymph # (Auto) Ralls # (Auto) Eos # (Auto) Baso # (Auto) WBC Differential Differential Comment Sodium Potassium Chloride Carbon Dioxide Anion Gap BUN Creatinine Estimated GFR POC Glucose 100 128 H 192 H Random Glucose Calcium Total Bilirubin AST ALT Alkaline Phosphatase Total Protein Albumin 10/22/18 10/22/18 10/22/18 03:50 03:50 03:52 WBC 9.9 RBC 3.86 L Hgb 10.0 L Hct 31.7 L MCV 82.2 MCH 25.9 L MCHC 31.5 L RDW 15.0 Plt Count 309 MPV 7.5 Neut % (Auto) 74.3 H Lymph % (Auto) 15.3 Ralls % (Auto) 9.0 H Eos % (Auto) 0.6 Baso % (Auto) 0.8 Neut # (Auto) 7.4 Lymph # (Auto) 1.5 Ralls # (Auto) 0.9 Eos # (Auto) 0.1 Baso # (Auto) 0.1 WBC Differential . Differential Comment Auto diff final Sodium 138 Potassium 4.3 Chloride 98 Carbon Dioxide 28.1 Anion Gap 12 BUN 55 H Creatinine 10.04 H* D Estimated GFR 7 L POC Glucose 130 H Random Glucose 134 H Calcium 8.2 L Total Bilirubin 0.2 AST 10 L ALT 6 L Alkaline Phosphatase 39 L Total Protein 6.2 L D Albumin 2.6 L 10/22/18 10/22/18 10/22/18 08:17 11:21 12:33 WBC RBC Hgb Hct MCV MCH MCHC RDW Plt Count MPV Neut % (Auto) Lymph % (Auto) Ralls % (Auto) Eos % (Auto) Baso % (Auto) Neut # (Auto) Lymph # (Auto) Ralls # (Auto) Eos # (Auto) Baso # (Auto) WBC Differential Differential Comment Sodium Potassium Chloride Carbon Dioxide Anion Gap BUN Creatinine Estimated GFR POC Glucose 129 H 117 H 117 H Random Glucose Calcium Total Bilirubin AST ALT Alkaline Phosphatase Total Protein Albumin Assessment and Plan - Assessment (1) End stage renal disease Code(s): N18.6 - End stage renal disease Status: Acute - Plan S/P LUE BC avf creation Stable for DC from vascular surgery standpoint FU in 6 weeks [phone]
[2018-10-22] MEDS: amLODIPine 5 MG Tablet PO SCH ×2 (12:47→21:23)
[2018-10-22] MEDS: Metoprolol Tartrate 50 MG Tablet PO SCH ×2 (12:47→21:23)
[2018-10-22] MEDS: Insulin Detemir Inj 1,000 UNIT/10 ML Vial SQ SCH (21:24)
[2018-10-23] MEDS: hydrALAZINE 25 MG Tablet PO SCH ×3 (03:12→17:38)
[2018-10-23] MEDS: Insulin NovoLOG Aspart Correctional Sugar Inj SQ SCH ×4 (03:12→17:25)
[2018-10-23 06:54] LABS: Albumin 2.6 g/dL (3.4-5.0); Alkaline Phosphatase 39 U/L (45-117); Anion Gap 9 meq/L (5-15); Aspartate Aminotransferase 10 U/L (15-37); Blood Urea Nitrogen 43 mg/dL (7-18); Calcium 8.1 mg/dL (8.5-10.1); Carbon Dioxide 29.7 meq/L (21.0-32.0); Chloride 98 meq/L (98-107); Glomerular Filtration Rate 8 mL/min (>89); Glucose,Random 140 mg/dL (74-106); Potassium 4.1 meq/L (3.5-5.1); Sodium 137 meq/L (136-145); Total Protein 6.3 g/dL (6.4-8.2)
[2018-10-23] MEDS: Heparin - SQ 10,000 UNITS/ML Vial SQ SCH (08:40)
[2018-10-23] MEDS: Metoprolol Tartrate 50 MG Tablet PO SCH (08:41)
[2018-10-23] MEDS: amLODIPine 5 MG Tablet PO SCH (08:41)
[2018-10-23] MEDS: Calcium Acetate 667 MG Capsule PO SCH ×3 (08:41→17:38)
--- NOTE | 2018-10-23 09:10 | P.PNNP ---
Subjective Interval history: Patient was seen, no distress. Complaints of wanting to go home. Patient is waiting on continuous pillowcase cutter to set up outpatient dialysis. Patient is s/p AVF in left arm. Patient gets dialysis TTS. Patient dialyzed yesterday, 1 L of fluid removed. Physical Exam Vital signs: Vital Signs 10/22/18 11:00 10/22/18 15:00 10/22/18 19:00 Temperature 98.7 F 99.0 F Pulse Rate 87 98 H 92 H Respiratory Rate 18 16 Blood Pressure 150/89 H 116/78 Pulse Oximetry 98 96 10/22/18 19:57 10/22/18 23:00 10/23/18 03:00 Temperature 98.6 F 98.8 F Pulse Rate 91 H 79 Respiratory Rate 18 16 Blood Pressure 120/74 118/77 Pulse Oximetry 98 96 96 10/23/18 07:00 Temperature Pulse Rate 90 Respiratory Rate Blood Pressure Pulse Oximetry Intake & Output 10/22/18 10/23/18 10/23/18 18:59 06:59 18:59 Intake Total 480 / 480 240 / 240 Output Total 1400 / 1400 0 / 0 Balance -920 / -920 240 / 240 Weight 95.5 kg Intake: Oral 480 / 480 240 / 240 Output: Urine 400 / 400 0 / 0 Hemodialysis Amount 1000 / 1000 Other: Date of Last Bowel Movement 10/19/18 - Constitutional no acute distress - Routine HEENT Exam Head: Present: normocephalic Eye: Present: EOMI, PERRL ENT: Present: mucous membranes moist - Routine Neck Exam Present: trachea midline. Absent: JVD, tracheal deviation - Routine Respiratory Exam Present: CTA bilaterally. Absent: accessory muscle use, respiratory distress - Routine Cardiovascular Exam Present: RRR. Absent: murmur - Routine Abdominal Exam Present: soft, normoactive bowel sounds - Routine Extremities Exam Present: pulses intact, AV fistula. Absent: edema - Routine Neurological Exam Present: alert, oriented X3 - Routine Psychiatric Exam Present: normal affect Assessment and Plan - Assessment (1) End stage renal disease Code(s): N18.6 - End stage renal disease Status: Acute Plan: Patient has reached ESRD. The etiology appears to diabetic nephropathy. FSGS is a possibility as well. Serologies negative so far. He has been informed that he needs dialysis 3 times/week. Vein mapping ordered, obtained. s/p AVF Patient gets dialysis TTS. Patient dialyzed yesterday, 1 L of fluid removed. entertainment centre manager is finding a dialysis unit near where he lives. Patient can be discharged from a renal standpoint once outpatient dialysis arrangements have been made. (2) Essential (primary) hypertension Code(s): I10 - Essential (primary) hypertension Status: Acute Plan: Monitor BP. BP has improved. (3) Type 2 diabetes mellitus with diabetic chronic kidney disease Code(s): E11.22 - Type 2 diabetes mellitus with diabetic chronic kidney disease Status: Acute Plan: Patient has proteinuria. Serologies negative. (4) Metabolic bone disease Code(s): E88.9 - Metabolic disorder, unspecified; M90.80 - Osteopathy in diseases classified elsewhere, unspecified site Status: Acute Plan: Patient on PhosLo
--- NOTE | 2018-10-23 13:03 | P.PNIM ---
Subjective Interval history: No acute complaints from the patient today. Patient was curious about renal transplant but he is informed this is too early to determine at this point. Outpatient arrangements for dialysis are in process. Physical Exam Vital signs: Last Vital Signs Temp 97.9 F 10/23/18 11:00 Pulse 86 10/23/18 11:00 Resp 16 10/23/18 11:00 BP 124/77 10/23/18 11:00 Pulse Ox 98 10/23/18 11:00 Intake & Output 10/21/18 10/22/18 10/23/18 10/24/18 06:59 06:59 06:59 06:59 Intake Total 920 / 920 1270 / 1270 720 / 720 Output Total 1300 / 1300 560 / 560 1400 / 1400 Balance -380 / -380 710 / 710 -680 / -680 Weight 94 kg 94 kg 95.5 kg Narrative: GENERAL: NAD, A&Ox3, stutter when talking HEAD: Normocephalic. NECK: Supple, trachea midline. No lymphadenopathy. EYES: No scleral icterus. No injection or drainage. CARDIOVASCULAR: Regular rate and rhythm without murmurs, gallops, or rubs. RESPIRATORY: Breath sounds equal bilaterally. No accessory muscle use. GASTROINTESTINAL: Abdomen soft, non-tender, nondistended. MUSCULOSKELETAL: No cyanosis, or edema. SKIN: Warm and dry. NEURO: No focal neurological deficits. Right arm paresthesias. Results Labs CBC & Chem 7: 10/22/18 03:50 10/23/18 05:22 Procedures Procedures: Permacath placement by interventional radiology on 10/16/2018. Assessment and Plan (1) End stage renal disease: Code(s): N18.6 - End stage renal disease Status: Acute Plan 48 year-old male admitted secondary to acute renal failure on chronic kidney disease Doing well today. Continue dialysis inpatient until outpatient arrangements are completed. Will discharge after outpatient arrangements for dialysis are completed. 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 twice daily to 50 mg p.o. twice daily Diabetes mellitus type 2 Follow blood sugars Insulin sliding scale Diabetic diet Continue Levemir Anemia Likely related to chronic kidney disease Follow hemoglobin levels Erythropoietin Slurred speech Negative neurologic workup Continue dialysis and monitor DVT Prophylaxis Heparin SQ 5000 BID. Progress Note: Quality VTE Deep Vein Thrombosis/Pulmonary Embolism Present on Admission: No
[2018-10-23] MEDS: Sod Chloride 0.9% Inj 1,000 ML IV.CONT SCH (16:38)
[2018-10-23] MEDS ORDERED: Tuberculin PPD 5 UNITS/0.1 ML Syringe I-DERMAL ONE (17:00)
[2018-10-24] MEDS: Metoprolol Tartrate 50 MG Tablet PO SCH ×3 (04:17→20:43)
[2018-10-24] MEDS: Insulin Detemir Inj 1,000 UNIT/10 ML Vial SQ SCH ×2 (04:17→20:43)
[2018-10-24] MEDS: Heparin - SQ 10,000 UNITS/ML Vial SQ SCH ×3 (04:17→20:42)
[2018-10-24] MEDS: Insulin NovoLOG Aspart Correctional Sugar Inj SQ SCH ×6 (04:17→20:43)
[2018-10-24] MEDS: amLODIPine 5 MG Tablet PO SCH ×3 (04:17→20:43)
[2018-10-24] MEDS: hydrALAZINE 25 MG Tablet PO SCH ×3 (04:19→18:18)
[2018-10-24] MEDS: Sod Chloride 0.9% Inj 1,000 ML IV.CONT SCH (07:12)
[2018-10-24] MEDS: Calcium Acetate 667 MG Capsule PO SCH ×3 (09:00→18:19)
--- NOTE | 2018-10-24 10:38 | P.PNNP ---
Subjective Interval history: Patient seen during hemodialysis tolerating it well, wants to be discharged Physical Exam Vital signs: Vital Signs 10/23/18 10:54 10/23/18 11:00 10/23/18 15:00 Temperature 97.9 F 98.3 F Pulse Rate 86 84 Respiratory Rate 16 16 Blood Pressure 124/77 126/81 Pulse Oximetry 99 98 100 10/23/18 19:00 10/23/18 23:00 10/24/18 03:00 Temperature 97.6 F 98.2 F 97.9 F Pulse Rate 82 82 83 Respiratory Rate 16 12 14 Blood Pressure 144/80 H 127/85 151/90 H Pulse Oximetry 100 100 100 10/24/18 08:00 Temperature Pulse Rate Respiratory Rate Blood Pressure Pulse Oximetry 100 Intake & Output 10/23/18 10/24/18 10/24/18 18:59 06:59 18:59 Intake Total 1440 / 1440 480 / 480 Balance 1440 / 1440 480 / 480 Intake: Oral 1440 / 1440 480 / 480 Other: # Voids 1 2 Date of Last Bowel Movement 10/19/18 Narrative: GENERAL: NAD, A&Ox3, stutter when talking HEAD: Normocephalic. NECK: Supple, trachea midline. No lymphadenopathy. EYES: No scleral icterus. No injection or drainage. CARDIOVASCULAR: Regular rate and rhythm without murmurs, gallops, or rubs. Right-sided permacath RESPIRATORY: Breath sounds equal bilaterally. No accessory muscle use. GASTROINTESTINAL: Abdomen soft, non-tender, nondistended. MUSCULOSKELETAL: No cyanosis, or edema. SKIN: Warm and dry. NEURO: No focal neurological deficits. Right arm paresthesias. Assessment and Plan - Assessment (1) End stage renal disease Code(s): N18.6 - End stage renal disease Status: Acute Plan: Patient has reached ESRD. The etiology appears to diabetic nephropathy. FSGS is a possibility as well. Serologies negative so far. He has been informed that he needs dialysis 3 times/week. Vein mapping ordered, obtained. s/p AVF Patient gets dialysis TTS. Patient seen during hemodialysis UF 1.5 L on 3K bath [employer] emergency services manager is finding a dialysis unit near where he lives. Patient can be discharged from a renal standpoint once outpatient dialysis arrangements have been made. (2) Essential (primary) hypertension Code(s): I10 - Essential (primary) hypertension Status: Acute Plan: Monitor BP. BP has improved. (3) Type 2 diabetes mellitus with diabetic chronic kidney disease Code(s): E11.22 - Type 2 diabetes mellitus with diabetic chronic kidney disease Status: Acute Plan: Patient has proteinuria. Serologies negative. (4) Metabolic bone disease Code(s): E88.9 - Metabolic disorder, unspecified; M90.80 - Osteopathy in diseases classified elsewhere, unspecified site Status: Acute Plan: Patient on PhosLo
--- NOTE | 2018-10-24 13:20 | P.PNIM ---
Subjective Interval history: PPD provided yesterday. Thus far PPD readings are negative. Patient has no new complaints. Status post dialysis this morning. Physical Exam Vital signs: Last Vital Signs Temp 98.4 F 10/24/18 08:00 Pulse 86 10/24/18 08:00 Resp 14 10/24/18 03:00 BP 158/91 H 10/24/18 08:00 Pulse Ox 100 10/24/18 08:00 Intake & Output 10/22/18 10/23/18 10/24/18 10/25/18 06:59 06:59 06:59 06:59 Intake Total 1270 / 1270 720 / 720 1920 / 1920 Output Total 560 / 560 1400 / 1400 1500 / 1500 Balance 710 / 710 -680 / -680 1920 / 1920 -1500 / -1500 Weight 94 kg 95.5 kg Narrative: GENERAL: NAD, A&Ox3, stutter when talking HEAD: Normocephalic. NECK: Supple, trachea midline. No lymphadenopathy. EYES: No scleral icterus. No injection or drainage. CARDIOVASCULAR: Regular rate and rhythm without murmurs, gallops, or rubs. RESPIRATORY: Breath sounds equal bilaterally. No accessory muscle use. GASTROINTESTINAL: Abdomen soft, non-tender, nondistended. MUSCULOSKELETAL: No cyanosis, or edema. SKIN: Warm and dry. NEURO: No focal neurological deficits. Right arm paresthesias. Results Labs CBC & Chem 7: 10/22/18 03:50 10/23/18 05:22 Procedures Procedures: Permacath placement by interventional radiology on 10/16/2018. Assessment and Plan (1) End stage renal disease: Code(s): N18.6 - End stage renal disease Status: Acute Plan 48 year-old male admitted secondary to acute renal failure on chronic kidney disease No acute changes overnight. Doing well today. Continue dialysis inpatient until outpatient arrangements are completed. Final PPD result pending. Will discharge after outpatient arrangements for dialysis are completed. 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 twice daily to 50 mg p.o. twice daily Diabetes mellitus type 2 Follow blood sugars Insulin sliding scale Diabetic diet Continue Levemir Anemia Likely related to chronic kidney disease Follow hemoglobin levels Erythropoietin Slurred speech Negative neurologic workup Continue dialysis and monitor DVT Prophylaxis Heparin SQ 5000 BID. Progress Note: Quality VTE Deep Vein Thrombosis/Pulmonary Embolism Present on Admission: No
[2018-10-24 20:17] LABS: Baso # (Auto) 0.1 th/mm3 (0.0-0.2); Baso % (Auto) 0.7 % (0.0-2.0); Eos % (Auto) 0.1 % (0.0-4.0); Hematocrit 36.2 % (39.0-51.0); Hemoglobin 11.4 gm/dL (13.0-17.0); Lymph # (Auto) 0.9 th/mm3 (1.0-4.8); Lymph % (Auto) 7.5 % (9.0-44.0); Mean Corpuscular HGB Conc 31.5 % (32.0-36.0); Mean Corpuscular Hemoglobin 26.1 pg (27.0-34.0); Mean Corpuscular Volume 82.9 fL (80.0-100.0); Mean Platelet Volume 7.5 fL (7.0-11.0); Mono # (Auto) 0.9 th/mm3 (0.0-0.9); Mono % (Auto) 7.3 % (0.0-8.0); Neut # (Auto) 10.5 th/mm3 (1.8-7.7); Neut % (Auto) 84.4 % (16.0-70.0); Platelet Count 353 th/mm3 (150-450); Red Blood Count 4.37 mil/mm3 (4.50-5.90); Red Cell Distribution Width 15.4 % (11.6-17.2); White Blood Count 12.5 th/mm3 (4.0-11.0)
[2018-10-24 20:55] LABS: Alanine Aminotransferase 7 U/L (12-78); Albumin 3.2 g/dL (3.4-5.0); Alkaline Phosphatase 50 U/L (45-117); Anion Gap 8 meq/L (5-15); Aspartate Aminotransferase 16 U/L (15-37); Blood Urea Nitrogen 35 mg/dL (7-18); Calcium 8.8 mg/dL (8.5-10.1); Carbon Dioxide 30.5 meq/L (21.0-32.0); Chloride 95 meq/L (98-107); Glomerular Filtration Rate 10 mL/min (>89); Glucose,Random 229 mg/dL (74-106); Phosphorus 2.1 mg/dL (2.5-4.9); Potassium 4.4 meq/L (3.5-5.1); Sodium 133 meq/L (136-145); Total Protein 7.6 g/dL (6.4-8.2)
[2018-10-25] MEDS: Sod Chloride 0.9% Inj 1,000 ML IV.CONT SCH (00:31)
[2018-10-25] MEDS: hydrALAZINE 25 MG Tablet PO SCH ×3 (01:29→17:23)
[2018-10-25] MEDS: Insulin NovoLOG Aspart Correctional Sugar Inj SQ SCH ×5 (03:39→22:21)
[2018-10-25 06:59] LABS: Baso # (Auto) 0.1 th/mm3 (0.0-0.2); Baso % (Auto) 0.8 % (0.0-2.0); Eos # (Auto) 0.1 th/mm3 (0.0-0.4); Eos % (Auto) 0.5 % (0.0-4.0); Hematocrit 31.6 % (39.0-51.0); Hemoglobin 10.1 gm/dL (13.0-17.0); Lymph # (Auto) 1.8 th/mm3 (1.0-4.8); Lymph % (Auto) 16.8 % (9.0-44.0); Mean Corpuscular Hemoglobin 26.7 pg (27.0-34.0); Mean Corpuscular Volume 83.4 fL (80.0-100.0); Mean Platelet Volume 7.5 fL (7.0-11.0); Mono # (Auto) 1.2 th/mm3 (0.0-0.9); Mono % (Auto) 10.9 % (0.0-8.0); Neut # (Auto) 7.7 th/mm3 (1.8-7.7); Platelet Count 286 th/mm3 (150-450); Red Blood Count 3.79 mil/mm3 (4.50-5.90); Red Cell Distribution Width 14.8 % (11.6-17.2); White Blood Count 10.9 th/mm3 (4.0-11.0)
[2018-10-25 07:32] LABS: Alanine Aminotransferase 6 U/L (12-78); Albumin 2.7 g/dL (3.4-5.0); Alkaline Phosphatase 40 U/L (45-117); Anion Gap 8 meq/L (5-15); Aspartate Aminotransferase 11 U/L (15-37); Blood Urea Nitrogen 42 mg/dL (7-18); Calcium 8.8 mg/dL (8.5-10.1); Carbon Dioxide 30.2 meq/L (21.0-32.0); Chloride 99 meq/L (98-107); Glomerular Filtration Rate 9 mL/min (>89); Glucose,Random 113 mg/dL (74-106); Potassium 3.9 meq/L (3.5-5.1); Sodium 137 meq/L (136-145); Total Protein 6.3 g/dL (6.4-8.2)
[2018-10-25] MEDS: Metoprolol Tartrate 50 MG Tablet PO SCH ×2 (08:18→22:23)
[2018-10-25] MEDS: Calcium Acetate 667 MG Capsule PO SCH ×3 (08:18→17:22)
[2018-10-25] MEDS: Heparin - SQ 10,000 UNITS/ML Vial SQ SCH ×2 (08:19→22:19)
[2018-10-25] MEDS: amLODIPine 5 MG Tablet PO SCH ×2 (08:19→22:23)
--- NOTE | 2018-10-25 10:28 | P.PNIM ---
Subjective Interval history: 'I want to go home' Physical Exam Vital signs: Last Vital Signs Temp 98.2 F 10/25/18 08:00 Pulse 96 H 10/25/18 08:00 Resp 18 10/25/18 08:00 BP 127/84 10/25/18 08:00 Pulse Ox 99 10/25/18 08:00 Intake & Output 10/23/18 10/24/18 10/25/18 10/26/18 06:59 06:59 06:59 06:59 Intake Total 720 / 720 1920 / 1920 1000 / 1000 Output Total 1400 / 1400 1800 / 1800 Balance -680 / -680 1920 / 1920 -800 / -800 Weight 95.5 kg 91.6 kg Narrative: GENERAL: middle aged man, not in distress, well developed. HEENT: not pale,anicteric NECK:no JVD CARDIOVASCULAR: Regular rate and rhythm without murmurs, gallops, or rubs. RESPIRATORY: CTAB. GASTROINTESTINAL: Abdomen soft, non-tender, nondistended. MUSCULOSKELETAL: No edema. Lt arm AVF surgical scar noted, clean. SKIN: Warm and dry. NEURO: No focal neurological deficits. Right arm paresthesias. Results Labs CBC & Chem 7: 10/25/18 05:19 10/25/18 05:19 Procedures Procedures: Permacath placement by interventional radiology on 10/16/2018. Assessment and Plan (1) End stage renal disease: Code(s): N18.6 - End stage renal disease Status: Acute Plan ESRD due DM nephropathy newly initiated on hemodialysis this hospitalization. awaiting outpatient HD placement.PPD ordered on 10/24 Hypertension:Uncontrolled Continue hydralazine Continue clonidine as needed Metoprolo 50 mg p.o. twice daily Diabetes mellitus type 2--blood glucose within acceptable limits. Follow blood sugars Insulin sliding scale Diabetic diet Continue Levemir Anemia Likely related to chronic kidney disease Follow hemoglobin levels Erythropoietin Slurred speech Negative neurologic workup Continue dialysis and monitor DVT Prophylaxis Heparin SQ 5000 BID. Progress Note: Quality VTE Deep Vein Thrombosis/Pulmonary Embolism Present on Admission: No
[2018-10-25] MEDS ORDERED: Tuberculin PPD 5 UNITS/0.1 ML Syringe I-DERMAL ONE (18:21)
[2018-10-25] MEDS: Insulin Detemir Inj 1,000 UNIT/10 ML Vial SQ SCH (22:19)
[2018-10-26] MEDS: hydrALAZINE 25 MG Tablet PO SCH ×3 (02:32→18:30)
[2018-10-26] MEDS: Insulin NovoLOG Aspart Correctional Sugar Inj SQ SCH ×5 (02:36→22:26)
[2018-10-26] MEDS: Calcium Acetate 667 MG Capsule PO SCH (10:12)
[2018-10-26] MEDS: Metoprolol Tartrate 50 MG Tablet PO SCH ×2 (10:12→22:25)
[2018-10-26] MEDS: Heparin - SQ 10,000 UNITS/ML Vial SQ SCH ×2 (10:13→22:25)
[2018-10-26] MEDS: amLODIPine 5 MG Tablet PO SCH ×2 (10:13→22:26)
--- NOTE | 2018-10-26 10:21 | P.PNNP ---
Subjective Interval history: He is very upset that he has stay in the hospital. Discussed with case monitor about discharge plans. Apparently they are still waiting for approval from outpatient dialysis unit. Physical Exam Vital signs: Vital Signs 10/25/18 12:00 10/25/18 15:00 10/25/18 20:00 Temperature 98.3 F 98.1 F 98.4 F Pulse Rate 94 H 93 H 96 H Respiratory Rate 18 18 18 Blood Pressure 136/94 H 118/75 132/87 Pulse Oximetry 98 100 98 10/25/18 23:59 10/26/18 03:00 10/26/18 08:00 Temperature 98.4 F 97.7 F 98.1 F Pulse Rate 100 H 89 94 H Respiratory Rate 19 17 20 Blood Pressure 146/96 H 158/95 H 140/85 Pulse Oximetry 98 97 100 Intake & Output 10/25/18 10/26/18 10/26/18 18:59 06:59 18:59 Intake Total 500 / 500 240 / 240 Output Total 400 / 400 Balance 500 / 500 -160 / -160 Weight 94.9 kg Intake: IV 500 / 500 NS Inj 1,000 ML @ 60 mls/hr IV. 500 / 500 CONT .[id number] Rx#:[id number] Oral 240 / 240 Output: Urine 400 / 400 Other: Date of Last Bowel Movement 10/24/18 10/24/18 Narrative: GENERAL: middle aged man, not in distress, well developed. HEENT: not pale,anicteric NECK:no JVD CARDIOVASCULAR: Regular rate and rhythm without murmurs, gallops, or rubs. RESPIRATORY: CTAB. GASTROINTESTINAL: Abdomen soft, non-tender, nondistended. MUSCULOSKELETAL: No edema. Lt arm AVF surgical scar noted, clean. SKIN: Warm and dry. NEURO: No focal neurological deficits. Right arm paresthesias. Assessment and Plan - Assessment (1) End stage renal disease Code(s): N18.6 - End stage renal disease Status: Acute Plan: Patient has reached ESRD. The etiology appears to diabetic nephropathy. FSGS is a possibility as well. Serologies negative so far. He has been informed that he needs dialysis 3 times/week. Vein mapping ordered, obtained. s/p AVF Patient gets dialysis TTS. 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 Patient can be discharged from a renal standpoint once outpatient dialysis arrangements have been made. Phosphorus was 2.1, I have stopped PhosLo (2) Essential (primary) hypertension Code(s): I10 - Essential (primary) hypertension Status: Acute Plan: Monitor BP. BP has improved. (3) Type 2 diabetes mellitus with diabetic chronic kidney disease Code(s): E11.22 - Type 2 diabetes mellitus with diabetic chronic kidney disease Status: Acute Plan: Patient has proteinuria. Serologies negative. (4) Metabolic bone disease Code(s): E88.9 - Metabolic disorder, unspecified; M90.80 - Osteopathy in diseases classified elsewhere, unspecified site Status: Acute Plan: Monitor phosphorus. - Plan patient was seen and examined. Likely has reached ESRD. We will continue dialysis 3 times/week. Consult vascular surgery for AVF placement.
--- NOTE | 2018-10-26 10:55 | P.PNIM ---
Subjective Interval history: patient frustrated at being here 12 days. Says he wants to go home. I explained to patient we are still awaiting outpatient HD placement and he will be discharged once outpt spot is available. Physical Exam Vital signs: Last Vital Signs Temp 98.1 F 10/26/18 08:00 Pulse 94 H 10/26/18 08:00 Resp 20 10/26/18 08:00 BP 140/85 10/26/18 08:00 Pulse Ox 100 10/26/18 08:00 Intake & Output 10/24/18 10/25/18 10/26/18 10/27/18 06:59 06:59 06:59 06:59 Intake Total 1920 / 1920 1000 / 1000 740 / 740 Output Total 1800 / 1800 400 / 400 Balance 1920 / 1920 -800 / -800 340 / 340 Weight 91.6 kg 94.9 kg Narrative: GENERAL: middle aged man, not in distress, well developed. HEENT: not pale,anicteric NECK:no JVD CARDIOVASCULAR: Regular rate and rhythm without murmurs, gallops, or rubs. RESPIRATORY: CTAB. GASTROINTESTINAL: Abdomen soft, non-tender, nondistended. MUSCULOSKELETAL: No edema. Lt arm AVF surgical scar noted, clean. SKIN: Warm and dry. NEURO: No focal neurological deficits. Right arm paresthesias. Results Labs CBC & Chem 7: 10/25/18 05:19 10/25/18 05:19 Procedures Procedures: Permacath placement by interventional radiology on 10/16/2018. Assessment and Plan (1) End stage renal disease: Code(s): N18.6 - End stage renal disease Status: Acute Plan 48 yo M who presented initially with nausea vomiting, found worsening renal function found to have progressed to ESRD and was initiated on hemodialysis during this hospitalization. ESRD due DM nephropathy newly initiated on hemodialysis this hospitalization. awaiting outpatient HD placement.PPD ordered on 10/24 as a requirement by outpt HD. surveillance manager following case. appreciate Nephrology recs/fup Hypertension:Uncontrolled Continue Metoprolol 50 mg p.o. twice daily, Hydralazine to 25mg q8h, continue Losartan 25mg daily. Monitor if systolic BP remains above 140, can increase Hydralazine to 50mg q8. Diabetes mellitus type 2--blood glucose within acceptable limits. Follow blood sugars Insulin sliding scale Diabetic diet Continue Levemir Anemia Likely related to chronic kidney disease Follow hemoglobin levels Erythropoietin Slurred speech Negative neurologic workup Continue dialysis and monitor DVT Prophylaxis Heparin SQ 5000 BID. Dispo: awaiting outpt hemodialysis availability prior to discharge. Progress Note: Quality VTE Deep Vein Thrombosis/Pulmonary Embolism Present on Admission: No
[2018-10-26] MEDS: Insulin Detemir Inj 1,000 UNIT/10 ML Vial SQ SCH (22:26)
[2018-10-27] MEDS: hydrALAZINE 25 MG Tablet PO SCH ×2 (00:49→11:52)
[2018-10-27] MEDS: Insulin NovoLOG Aspart Correctional Sugar Inj SQ SCH ×3 (02:58→13:33)
--- NOTE | 2018-10-27 10:37 | P.PNIM ---
Subjective Interval history: Patient is in no acute distress. Patient wants to go home. Physical Exam Vital signs: Vital Signs 10/26/18 12:00 10/26/18 14:33 10/26/18 15:00 Temperature 98 F 97.9 F Pulse Rate 89 94 H Respiratory Rate 18 18 Blood Pressure 159/90 H 140/90 Pulse Oximetry 97 97 98 10/26/18 20:00 10/27/18 00:00 10/27/18 04:00 Temperature 98.3 F 98.3 F 97.1 F L Pulse Rate 106 H 99 H 99 H Respiratory Rate 18 18 18 Blood Pressure 154/88 H 159/93 H 128/79 Pulse Oximetry 98 97 98 10/27/18 08:00 10/27/18 08:54 Temperature Pulse Rate 99 H Respiratory Rate 18 Blood Pressure 152/86 H Pulse Oximetry 98 98 Intake & Output 10/26/18 10/27/18 10/27/18 18:59 06:59 18:59 Intake Total 960 / 960 0 / 0 Output Total 1100 / 1100 Balance -140 / -140 0 / 0 Intake: Oral 960 / 960 0 / 0 Output: Urine 1100 / 1100 Other: # Voids 1 Date of Last Bowel Movement 10/24/18 10/24/18 # Bowel Movements 0 0 Narrative: General patient in no acute distress HEENT extraocular movements are intact, clear oropharyngeal mucosa Cardiovascular S1-S2 audible, RRR, no murmurs rubs or gallops Respiratory clear to auscultation bilaterally Abdomen soft, nontender, nondistended, normal bowel sounds Extremities AV fistula to left upper extremity. AV fistula appears clean, no signs of infection. Neuro no focal neurological deficits. Results - Labs CBC & Chem 7: 10/25/18 05:19 10/25/18 05:19 Laboratory Results - last 24 hr 10/26/18 10/26/18 10/26/18 12:06 17:10 20:05 POC Glucose 181 H 176 H 232 H 10/27/18 10/27/18 02:57 07:56 POC Glucose 109 129 H - Procedures Permacath placement by interventional radiology on 10/16/2018. Assessment and Plan - Assessment (1) End stage renal disease Code(s): N18.6 - End stage renal disease Status: Acute - Plan This patient is a 48-year-old male with a chronic kidney disease who initially presented with nausea, vomiting. The patient was found to have worsening renal function and has progressed to end-stage renal disease. He has now been initiated on hemodialysis during this hospitalization. 1. End-stage renal disease likely due to diabetic nephropathy Patient started on hemodialysis during this hospitalization. Status post AV fistula placement. Hemodialysis scheduled for today. Nephrology is following the patient and he is currently awaiting outpatient hemodialysis initiation scheduling. Case will be discussed with case management today regarding the patient's potential discharge. 2. Hypertension Patient has had a systolic blood pressure running between 120 and 150. Continue current blood pressure medication regimen. 3. Diabetes mellitus type 2 Continue Levemir, continue low-dose insulin sliding scale. Diabetic diet. We will adjust his diabetes medication regimen as needed. 4. Anemia Likely secondary to end-stage renal disease. Continue Epogen DVT prophylaxis, continue heparin subcu twice daily. Discharge planning. Patient awaiting availability for outpatient hemodialysis initiation.
[2018-10-27] MEDS: Heparin 10,000 UNITS/10 ML Vial (for IV use) OTHER PRN (11:36)
[2018-10-27] MEDS: amLODIPine 5 MG Tablet PO SCH (11:52)
[2018-10-27] MEDS: Heparin - SQ 10,000 UNITS/ML Vial SQ SCH (11:52)
[2018-10-27] MEDS: Metoprolol Tartrate 50 MG Tablet PO SCH (11:52)
--- NOTE | 2018-10-27 15:18 | P.PNNP ---
Subjective Interval history: Patient was seen and examined during dialysis. He is still upset that he is still in the hospital. Physical Exam Vital signs: Vital Signs 10/26/18 20:00 10/27/18 00:00 10/27/18 04:00 Temperature 98.3 F 98.3 F 97.1 F L Pulse Rate 106 H 99 H 99 H Respiratory Rate 18 18 18 Blood Pressure 154/88 H 159/93 H 128/79 Pulse Oximetry 98 97 98 10/27/18 08:00 10/27/18 08:54 10/27/18 12:00 Temperature 98.4 F Pulse Rate 99 H 110 H Respiratory Rate 18 18 Blood Pressure 152/86 H 121/77 Pulse Oximetry 98 98 98 Intake & Output 10/26/18 10/27/18 10/27/18 18:59 06:59 18:59 Intake Total 960 / 960 0 / 0 Output Total 1100 / 1100 1500 / 1500 Balance -140 / -140 0 / 0 -1500 / -1500 Intake: Oral 960 / 960 0 / 0 Output: Urine 1100 / 1100 Hemodialysis Amount 1500 / 1500 Other: # Voids 1 Date of Last Bowel Movement 10/24/18 10/24/18 # Bowel Movements 0 0 Narrative: General patient in no acute distress HEENT extraocular movements are intact, clear oropharyngeal mucosa Cardiovascular S1-S2 audible, RRR, no murmurs rubs or gallops Respiratory clear to auscultation bilaterally Abdomen soft, nontender, nondistended, normal bowel sounds Extremities AV fistula to left upper extremity. AV fistula appears clean, no signs of infection. Neuro no focal neurological deficits. Assessment and Plan - Assessment (1) End stage renal disease Code(s): N18.6 - End stage renal disease Status: Acute Plan: Patient has reached ESRD. The etiology appears to diabetic nephropathy. FSGS is a possibility as well. Serologies negative so far. He has been informed that he needs dialysis 3 times/week. Vein mapping ordered, obtained. s/p AVF Patient gets dialysis TTS. Patient seen during hemodialysis. I discussed with director case management again today about expediting discharge process. (2) Essential (primary) hypertension Code(s): I10 - Essential (primary) hypertension Status: Acute Plan: Monitor BP. BP has improved. (3) Type 2 diabetes mellitus with diabetic chronic kidney disease Code(s): E11.22 - Type 2 diabetes mellitus with diabetic chronic kidney disease Status: Acute Plan: Patient has proteinuria. Serologies negative. (4) Metabolic bone disease Code(s): E88.9 - Metabolic disorder, unspecified; M90.80 - Osteopathy in diseases classified elsewhere, unspecified site Status: Acute Plan: Monitor phosphorus. - Plan patient was seen and examined. Likely has reached ESRD. We will continue dialysis 3 times/week. Consult vascular surgery for AVF placement.
--- NOTE | 2018-10-27 16:49 | P.AMA ---
AMA Note - Diagnosis (1) End stage renal disease Recommended Treatment Course: I had a discussion with the patient regarding his decision to leave AGAINST MEDICAL ADVICE. I also had a discussion with the patient's regarding the patient's current condition and his decision to leave AGAINST MEDICAL ADVICE. They are adamant about leaving AGAINST MEDICAL ADVICE and understand the risk including a possible fatal outcome without hemodialysis. Scripts for antihypertensive medication were given to the patient prior to him leaving the hospital. He was advised to follow-up with his primary care doctor this week. AMA Statement: Patient Dexter Dubon JR has decided to leave the hospital against medical advice. This patient has the capacity to refuse care and understands the risks of leaving, including permanent disability and/or , and has had an opportunity to ask questions about his/her condition. The patient has been informed that he/she may return for care at any time, and follow up has been arranged/advised. Discharge Disposition: Against Medical Advice Patient Condition on Discharge: Fair
== END 2018-10-27 17:16 | disposition left against medical advice (07) ==
LOC: NEDDLT 23:19 → N04 23:29 → HCIS 10-16 19:25 → N04 10-24 18:45
PROVIDERS: ADMIT Hospitalist; ATTEND Hospitalist
PROC: AVGFTUE (ICD-10-PCS; 2018-10-21 13:33)